=== PATIENT | male | born 1945 | race Caucasian/White ===

== ENCOUNTER 2018-03-04 09:25 | Inpatient (IN) | payer MEDICARE, OTHER ==
--- NOTE | 2018-03-04 11:03 | XRAY Report ---
Reason: swollen, pain Procedure Date: 03/04/2018 Accession Number: [id number] / [id number] Procedure: XR - Knee 3 View LT CPT Code: FULL RESULT: EXAM: LEFT KNEE RADIOGRAPHY, 3 VIEWS EXAM DATE: 03/04/2018 10:42 AM. CLINICAL HISTORY: 72-year-old male with nontraumatic swelling and pain left knee. COMPARISON: None. TECHNIQUE: AP, crosstable lateral and sunrise views. FINDINGS: Bones: Minor hypertrophic changes of the tibial spines and patella. No fractures or bone lesions. Joints: Normal. No effusion. No subluxations. Soft Tissues: Moderate prepatellar and infrapatellar soft tissue swelling. No soft tissue gas or foreign body. IMPRESSION: Moderate anterior knee swelling, without soft tissue gas or foreign body. Minor hypertrophic changes. Knee joint otherwise normal. No evident fracture, lytic or destructive process. RADIA
[2018-03-04 11:59] LABS: BASOPHILS # (AUTO) 0.1 10^3/uL (0.0-0.1); BASOPHILS % (AUTO) 0.4 %; EOSINOPHILS % (AUTO) 0.1 %; HGB - HEMOGLOBIN 14.4 g/dL (14.0-18.0); LYMPHOCYTES # (AUTO) 0.9 10^3/uL (1.5-3.5); LYMPHOCYTES % (AUTO) 5.4 %; MEAN CORPUSCULAR HEMOGLOBIN 30.3 pg (27.0-31.0); MEAN CORPUSCULAR HGB CONC 34.2 g/dL (32.0-36.0); MEAN CORPUSCULAR VOLUME 88.6 fL (80.0-94.0); MEAN PLATELET VOLUME 7.8 fL (7.4-11.4); MONOCYTES # (AUTO) 0.8 10^3/uL (0.0-1.0); MONOCYTES % (AUTO) 5.1 %; NEUTROPHILS # (AUTO) 14.3 10^3/uL (1.5-6.6); PLT - PLATELET COUNT 177 10^3/uL (130-450); RED BLOOD COUNT 4.75 10^6/uL (4.70-6.10); RED CELL DISTRIBUTION WIDTH 14.7 % (12.0-15.0); WHITE BLOOD COUNT 16.1 x10^3/uL (4.8-10.8)
[2018-03-04 12:11] LABS: ALBUMIN 3.9 g/dL (3.2-5.5); BILIRUBIN,TOTAL 1.2 mg/dL (0.2-1.0); CALCIUM 9.1 mg/dL (8.5-10.3); TOTAL PROTEIN 7.9 g/dL (6.7-8.2)
[2018-03-04] MEDS ORDERED: VANCOMYCIN INJ 1 GM in SODIUM CHLORIDE 0.9% 500 ML IV STA (12:49)
[2018-03-04] MEDS ORDERED: cefTRIAXone 1 GM in SODIUM CHLORIDE 0.9% MINIBAG 100 ML IV STA (12:49)
--- NOTE | 2018-03-04 12:53 | ED Physician Documentation ---
PD HPI LOWER EXT INJURY - Stated complaint Stated Complaint: LT KNEE SWOLLEN - Chief complaint Chief Complaint: Ext Problem - History obtained from History obtained from: Patient, Family - History of Present Illness PD HPI LOW EXT INJURY LOCATION: Left, Knee, Lower leg Type of injury: Puncture wound Where injury occurred: Home Timing - onset: How many weeks ago (1.5) Timing - duration: Days (1) Timing - details: Abrupt onset Pain level max: 0 Pain level now: 0 Improved by: Nothing Worsened by: Other (nothing) Associated symptoms: Swelling, Discolored. No: Weakness, Numbness, Tingling Contributing factors: No: Anticoagulated Similar symptoms before: Has not had sx before Recently seen: Not recently seen - Additional information Additional information: 72-year-old male with no past medical history but had arthroscopic of bilateral knees for his ACL many years ago here with complaint of left knee swelling yesterday and waking up at 8:00 in the morning with Redness of his left leg. Patient stated that he banged his lower left leg a week and a half ago on his boat. Right now it has been scabbed. claims that he was complaining of chills a couple of days ago. Patient claims his tetanus shot is up to date. Review of Systems Ten Systems: 10 systems reviewed and negative Constitutional: reports: Chills. denies: Fever GI: denies: Abdominal Pain Skin: reports: Abrasion (s). denies: Rash, Lesions, Bite / sting Musculoskeletal: reports: Extremity swelling. denies: Neck pain, Back pain, Extremity pain, Joint pain Neurologic: denies: Generalized weakness, Focal weakness, Numbness PD PAST MEDICAL HISTORY - Past Medical History Past Medical History: No Cardiovascular: Hypertension Endocrine/Autoimmune: Type 2 diabetes - Past Surgical History Past Surgical History: Yes - Present Medications Home Medications: Ambulatory Orders Medication Instructions Recorded Confirmed Blood Pressure Medication 03/04/18 metFORMIN [Glucophage] 1,000 mg PO BIDWM 03/04/18 03/04/18 - Allergies Allergies/Adverse Reactions: Allergies Allergy/AdvReac Type Severity Reaction Status Date / Time No Known Drug Allergies Allergy Verified 03/04/18 09:40 - Social History Does the pt smoke?: No Smoking Status: Never smoker Does the pt drink ETOH?: No Does the pt have substance abuse?: No - Immunizations Immunizations are current?: Yes PD ED PE NORMAL - Vitals Vital signs reviewed: Yes - General General: Alert and oriented X 3, No acute distress, Well developed/nourished - HEENT HEENT: Moist mucous membranes - Neck Neck: Supple, no meningeal sign - Cardiac Cardiac: RRR, No murmur - Respiratory Respiratory: Clear bilaterally - Abdomen Abdomen: Normal bowel sounds, Soft, Non tender, Non distended - Back Back: No CVA TTP, No spinal TTP - Derm Derm: Normal color, Warm and dry, Other (Anterior aspect of his left leg has erythema with warmth to touch from distal thigh to proximal tibia.). No: No rash - Extremities Extremities: No deformity, Normal ROM s pain. No: No tenderness to palpate, No edema, No calf tenderness / cord - Neuro Neuro: Alert and oriented X 3 - Psych Psych: Normal mood, Normal affect Results - Vitals Vitals: Vital Signs - 24 hr 03/04/18 03/04/18 09:30 12:00 Temperature 36.6 C 37.2 C Heart Rate 115 H 93 Respiratory 18 16 Rate Blood Pressure 132/85 H 104/89 H O2 Saturation 95 95 Oxygen O2 Source Room air - Labs Labs: Laboratory Tests 03/04/18 03/04/18 03/04/18 11:50 11:50 Unknown WBC 16.1 H RBC 4.75 Hgb 14.4 Hct 42.1 MCV 88.6 MCH 30.3 MCHC 34.2 RDW 14.7 Plt Count 177 MPV 7.8 Neut # (Auto) 14.3 H Lymph # (Auto) 0.9 L Millard # (Auto) 0.8 Eos # (Auto) 0.0 Baso # (Auto) 0.1 Absolute Nucleated RBC 0.00 Nucleated RBC % 0.0 ESR 24 H Sodium 134 L Potassium 3.6 Chloride 97 L Carbon Dioxide 27 Anion Gap 10.0 BUN 15 Creatinine 1.0 Estimated GFR (MDRD) 74 L Glucose 142 H Calcium 9.1 Total Bilirubin 1.2 H AST 19 ALT 17 Alkaline Phosphatase 53 C-React Prot High Sens Total Protein 7.9 Albumin 3.9 Globulin 4.0 Albumin/Globulin Ratio 1.0 Lipase 17 L 03/04/18 Unknown WBC RBC Hgb Hct MCV MCH MCHC RDW Plt Count MPV Neut # (Auto) Lymph # (Auto) Millard # (Auto) Eos # (Auto) Baso # (Auto) Absolute Nucleated RBC Nucleated RBC % ESR Sodium Potassium Chloride Carbon Dioxide Anion Gap BUN Creatinine Estimated GFR (MDRD) Glucose Calcium Total Bilirubin AST ALT Alkaline Phosphatase C-React Prot High Sens 352.5 Total Protein Albumin Globulin Albumin/Globulin Ratio Lipase PD MEDICAL DECISION MAKING - ED course Complexity details: reviewed results, re-evaluated patient, considered differential (Contusion, cellulitis, knee effusion, septic arthritis), d/w patient, d/w family, d/w PMD ED course: 1128 patient informed of x-ray results. He agreed to have some labs done as it appears that the left leg is cellulitic. 1240 patient inform of test results. Patient agreed to be admitted for IV antibiotics for cellulitis. 1247 spoke to the hospitalist Dr. Decker and case was discussed. He would like the patient started on vancomycin and Rocephin.He will admit the patient. Departure - Departure Disposition: 66 [facility] DC/Xfer Clinical Impression: Cellulitis of leg without foot, left Condition: Stable
[2018-03-04] MEDS ORDERED: VANCOMYCIN INJ 2.5 GM in SODIUM CHLORIDE 0.9% 500 ML IV STA (13:21)
[2018-03-04 14:07] LABS: HB2 TOTAL 15.5 g/dL; HEMOGLOBIN A1C 0.59 g/dL; HEMOGLOBIN A1C % 5.6 % (4.6-6.2)
[2018-03-04] MEDS: ACETAMINOPHEN 325 MG TABLET PO PRN ×2 (14:32→18:42)
--- NOTE | 2018-03-04 14:37 | HISTORY & PHYSICAL EXAMINATION ---
Chief Complaint - Chief Complaint Chief Complaint: left de la fuente swelling, pain History of Present Illness - Admitted From Admitted From:: ED - History Obtained From Records Reviewed: yes History obtained from: chart review, patient Exam Limitations: none - History of Present Illness HPI Comment/Other: Jordan Briscoe (Jim) is an obese 72-year old male with a past medical history of peripheral neuropathy, controlled DM type 2-on Metformin, obesity, logging accident in 1969 to LLE, and hardware removal in 1971 after infection. The patient admits to bumping his left de la fuente about a week ago [place] and this resulted in a dime sized scab. 2 days ago the patient described a series of full body rigors, increased fatigue, loss of appetite, chills, sweats, increased left knee swelling and pain while ambulating. Today he decided to come to the ED since his left knee was not only swollen, but also warm and red. Once arriving in the ED labs were unremarkable with the exception of a WBC count of 16.1 and an elevated ESR of 24. The patient was afebrile while in the ED, but after arriving to the nursing floor was found to have a temp max of 37.8, blood pressure of 132/85, and was comfortable on room air. On exam his left knee and de la fuente were swollen, were tender, and this erythema had not exceeded the previous markings, but seemed to originate at the dime sized scab on his anterior de la fuente and extended just past his knee into his thigh about 5 inches. He was given a one time dose of Rocephin. He denied chest pain, shortness of breath, nausea, vomiting, headaches, hallucinations, orthopnea, a new rash, loss of consciousness, falls, recent illness, or diarrhea. He will be admitted to inpatient for further work up and treatment of this left leg cellulitis. 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 - Family & Social History Family History: Mother: , Father: Family History Comment/Other: The patient states that both of his parents are and they had no known past medical history. Living arrangement: At home (Lives in the [place] on a boat with his .) Living Situation: With spouse/s.o. Social History Notes: The patient is retired and lives independently in the [place] on a boat with is . His [place] Terrior has just had a litter of puppies. He denies the use of alcohol, tobacco or illicit drugs. He wishes to be a DNR. - Substance History Use: Uses substance without health or social issues: NONE Abuse: Recurrent use of substance despite neg consequences: NONE Dependence: Experiences withdrawal or developed tolerances: NONE - POLST Patient has POLST: No POLST Status: DNR Meds/Allgy - Home Medications Home Medications: Ambulatory Orders Medication Instructions Recorded Confirmed Losartan [Cozaar] 50 mg PO DAILY 03/04/18 03/04/18 metFORMIN [Glucophage] 1,000 mg PO BIDWM 03/04/18 03/04/18 - Allergies Allergies/Adverse Reactions: Allergies Allergy/AdvReac Type Severity Reaction Status Date / Time No Known Drug Allergies Allergy Verified 03/04/18 09:40 Review of Systems - Constitutional Constitutional: reports: Fatigue, Chills, Weakness, Poor appetite, Night sweats - Eyes Eyes: denies: Pain - Ears, Nose & Throat Ears, Nose & Throat: reports: Hearing loss. denies: Ear pain, Tinnitus, Vertigo - Cardiovascular Cariovascular: reports: Edema (left knee). denies: Lightheadedness, Syncope - Respiratory Respiratory: denies: Cough, Sputum production - Gastrointestinal Gastrointestinal: reports: Abdominal distention, Nausea, Reflux/heartburn - Genitourinary Genitourinary: reports: Nocturia. denies: Dysuria, Frequency - Musculoskeletal Musculoskeletal: reports: Limited range of motion, Joint swelling (left knee). denies: Muscle pain, Back pain - Integumentary Integumentary: reports: Dryness - Neurological Neurological: reports: General weakness - Psychiatric Psychiatric: denies: Depression, Anxiety - Endocrine Endocrine: denies: Polyuria, Polydypsia - Hematologic/Lymphatic Hematologic/Lymphatic: denies: Anemia, Bruising - All Other Systems All Other Systems: reports: Reviewed and negative Prior Level of Functionality: Independent, lives in the [place] on a boat with his . Uses no assistive devices. Good vision and hearing. Exam - Vital Signs Reviewed Vital Signs: Yes Vital Signs: Vital Signs x48h Temp Pulse Pulse Resp BP BP Pulse Ox 03/04/18 13:53 37.3 C 91 24 140/84 H 96 03/04/18 13:10 37.4 C 93 20 139/85 H 95 03/04/18 12:00 37.2 C 93 16 104/89 H 95 03/04/18 09:30 36.6 C 115 H 18 132/85 H 95 - Physical Exam General Appearance: positive: Alert, Mild distress Eyes Bilateral: positive: PERRL ENT: positive: Pharynx nml, No signs of dehydration Neck: positive: Thyroid nml, No JVD, Trachea midline Respiratory: positive: Chest non-tender, No respiratory distress, Breath sounds nml Cardiovascular: positive: Regular rate & rhythm, No murmur, No gallop Peripheral Pulses: positive: 2+ Abdomen: positive: Non-tender, Nml bowel sounds, Other (obese, soft) Back: positive: Nml inspection Skin: positive: No rash, Warm, Dry Extremities: positive: Pedal edema (trace bilateral feet, increased swelling, tenderness, warmth, and redness to left de la fuente and knee. Healing scab to left anterior lower leg.), Joint swelling (left knee) Neurologic/Psychiatric: positive: Oriented x3, CN's nml (2-12), Motor nml, Sensation nml, Weakness Reflexes: Bicep (R): 3+, Bicep (L): 3+ Sepsis Event Note (H) - Evaluation Current Stage of Sepsis: Ruled out Conclusion/Plan - Problem List (1) Cellulitis of leg without foot, left Conclusion/Plan: The patient admits to bumping his left de la fuente about a week ago [place] and this resulted in a dime sized scab. He admits to moderate peripheral neuropathy as a possible contributing factor to this injury. 2 days ago the patient described a series of full body rigors, increased fatigue, loss of appetite, chills, sweats, increased left knee swelling and pain while ambulating. Today he decided to come to the ED since his left knee was not only swollen, but also warm and red. Since arriving in the ED the original tracing has not increased and he was initially treated with IV Rocephin. Plan: Aggressive treatment with IV Zosyn, vanco per pharmacy and continuous monitoring of the left leg. (2) Diabetes mellitus type 2 in obese Conclusion/Plan: The patient denies being diabetic when asked, but later admitted to this disease and claims that he has only been on Metformin for a few years. He is obese and has peripheral neuropathy. I added on a hemoglobin A1C to his admission labs which shows very good blood sugar control with it being 5.4%. Plan: Hold metformin as per hospital protocol, Lantus 5 units at HS, SSI with blood sugar checks AC/HS. Regular diet for now since his appetite has been very poor. (3) Obesity with body mass index of 30.0-39.9 Conclusion/Plan: The patient has a current BMI of 37.9, a rounded abdomen, but states that he remains very active since him and his live on the [place] on a boat. He is required to walk long distances, which has been serving him well as he appears on exam to be in good shape with very good muscle tone and no evidence of choric vascular complications. Plan: Treat this acute illness, encourage weight management program as per PCP consult. (4) Peripheral neuropathy Conclusion/Plan: The patient has a loss of sensation on exam extending to his mid calf. He states this is chronic. He has controlled DM, and is obese. This may have been a contributing factor to this injury. He denies chronic naturopathic pain. Plan: Continue to treat acute illness. - Lab Results Lab results reviewed: Yes Fish Bones: 03/04/18 11:50 03/04/18 11:50 - Diagnostic Imaging Results Diagnostic Imaging Results: positive: Final report reviewed Diagnostic Imaging Results Comments: EXAM: LEFT KNEE RADIOGRAPHY, 3 VIEWS EXAM DATE: 03/04/2018 10:42 AM. IMPRESSION: Moderate anterior knee swelling, without soft tissue gas or foreign body. Minor hypertrophic changes. Knee joint otherwise normal. No evident fracture, lytic or destructive process. ECHOCARDIOGRAM has been ordered. - EKG Results EKG Interpreted Independently: Yes EKG Comparison: No prior EKG (NSR) Core Measures - Anticipated LOS I expect patient to be DC'd or transferred within 96 hours.: Yes - DVT/VTE - Prophylaxis VTE/DVT Device ordered at admit?: Yes VTE/DVT Prophylaxis med ordered at admit?: Yes - Stroke - Rehab Assessment Rehab services assessment to be ordered?: No Not Ordered - Medical Reason: Contraindicated - AMI - Statin at Admit Aspirin Prescribed on Admit: Yes
[2018-03-04] MEDS ORDERED: VANCOMYCIN PER PHARMACY 0.001 GM in SODIUM CHLORIDE 0.9% 250 ML IV PRN (15:00)
[2018-03-04] MEDS: PIPERACILLIN/TAZOBACTAM 3.375 GM in SODIUM CHLORIDE 0.9% MINIBAG 100 ML IV SCH ×2 (16:30→21:27)
[2018-03-04] MEDS: SODIUM CHLORIDE FLUSH 0.9% 10 ML SYRINGE IVP SCH (16:31)
[2018-03-04] MEDS: INSULIN ASPART 300 UNIT/3 ML PEN SUBQ SCH ×2 (17:03→21:13)
[2018-03-04] MEDS ORDERED: SODIUM CHLORIDE 0.9% 500 ML IV ONE (17:50)
[2018-03-04] MEDS: SODIUM CHLORIDE FLUSH 0.9% 10 ML SYRINGE IVP PRN (18:42)
[2018-03-04] MEDS ORDERED: INSULIN GLARGINE 300 UNIT/3 ML PEN SUBQ SCH (21:00)
[2018-03-05] MEDS: SODIUM CHLORIDE FLUSH 0.9% 10 ML SYRINGE IVP SCH ×3 (00:32→16:19)
[2018-03-05] MEDS: ACETAMINOPHEN 325 MG TABLET PO PRN ×3 (00:43→16:18)
[2018-03-05] MEDS: VANCOMYCIN INJ 1 GM, VANCOMYCIN INJ 500 MG in SODIUM CHLORIDE 0.9% 500 ML IV SCH ×2 (01:57→14:06)
[2018-03-05] MEDS: PIPERACILLIN/TAZOBACTAM 3.375 GM in SODIUM CHLORIDE 0.9% MINIBAG 100 ML IV SCH ×4 (04:02→21:22)
[2018-03-05] MEDS: SODIUM CHLORIDE FLUSH 0.9% 10 ML SYRINGE IVP PRN ×3 (04:09→21:23)
[2018-03-05 05:49] LABS: BASOPHILS # (AUTO) 0.1 10^3/uL (0.0-0.1); BASOPHILS % (AUTO) 0.5 %; EOSINOPHILS # (AUTO) 0.1 10^3/uL (0.0-0.7); EOSINOPHILS % (AUTO) 0.9 %; LYMPHOCYTES % (AUTO) 7.8 %; MEAN CORPUSCULAR HEMOGLOBIN 30.1 pg (27.0-31.0); MEAN CORPUSCULAR HGB CONC 34.1 g/dL (32.0-36.0); MEAN CORPUSCULAR VOLUME 88.1 fL (80.0-94.0); MONOCYTES # (AUTO) 0.6 10^3/uL (0.0-1.0); MONOCYTES % (AUTO) 5.2 %; NEUTROPHILS # (AUTO) 10.4 10^3/uL (1.5-6.6); NEUTROPHILS % (AUTO) 85.6 %; PLT - PLATELET COUNT 152 10^3/uL (130-450); RED BLOOD COUNT 4.31 10^6/uL (4.70-6.10); RED CELL DISTRIBUTION WIDTH 14.8 % (12.0-15.0); WHITE BLOOD COUNT 12.2 x10^3/uL (4.8-10.8)
[2018-03-05 06:19] LABS: ALBUMIN 3.1 g/dL (3.2-5.5); ALBUMIN/GLOBULIN RATIO 0.8 (1.0-2.2); BILIRUBIN,TOTAL 1.4 mg/dL (0.2-1.0); CALCIUM 8.4 mg/dL (8.5-10.3); CRP - C-REACTIVE PROTEIN 33.7 mg/dL (0-1.0); MAGNESIUM 1.7 mg/dL (1.7-2.8); PHOSPHORUS 2.6 mg/dL (2.5-4.6); TOTAL PROTEIN 6.9 g/dL (6.7-8.2)
[2018-03-05] MEDS: INSULIN ASPART 300 UNIT/3 ML PEN SUBQ SCH ×2 (07:37→11:41)
[2018-03-05] MEDS ORDERED: POTASSIUM CHLORIDE 20 MEQ TABLET PO ONE (08:22)
[2018-03-05] MEDS: POLYETHYLENE GLYCOL 3350 17 GM PACKET PO SCH (08:22)
--- NOTE | 2018-03-05 08:22 | PROVIDER PROGRESS NOTE ---
Subjective - Prog Note Date Prog Note Date: 03/05/18 Prog Note Time: 08:22 - Subjective Pt reports feeling: Improved Subjective: Slim continues to have discomfort on exam of his LLE, and is fearful of getting up today as the pain becomes too intense. I have made a new outline of the redness which is overall improved and with much less redness. He denies insomnia, shortness of breath, nausea, vomiting, a new rash, or a new cough. He admits to a continued poor appetite and notes meals to be a struggle. Current Medications - Current Medications Current Medications: Active Medications Acetaminophen (Tylenol) 650 mg PO Q4HR PRN PRN Reason: Pain or Fever > 38C (100.4F) Last Admin: 03/05/18 08:22 Dose: 650 mg Piperacillin Sod/Tazobactam (Sod 3.375 gm/ Sodium Chloride) 100 mls @ 200 mls/hr IV Q6H [facility] Last Infusion: 03/05/18 04:37 Dose: Infused Vancomycin HCl 0.001 gm/ (Sodium Chloride) 250 mls @ 167 mls/hr IV .PERPHARMACY PRN PRN Reason: PER PHARMACY: CELLULITIS Vancomycin HCl 1 gm/Vancomycin HCl 500 mg/ Sodium Chloride 500 mls @ 250 mls/hr IV Q12H [facility] Last Infusion: 03/05/18 04:01 Dose: Infused Lactated Ringer's (Lr) 1,000 mls @ 125 mls/hr IV .Q8H [facility]ET Insulin Aspart (Novolog) 1 - 5 unit SUBQ 0800,1200,1700,2100 JET; Protocol Last Admin: 03/05/18 07:37 Dose: Not Given Insulin Glargine (Lantus Solostar) 5 unit SUBQ QPM JET Last Admin: 03/04/18 21:27 Dose: 5 unit Polyethylene Glycol (Miralax) 17 gm PO DAILY JET Last Admin: 03/05/18 08:22 Dose: 17 gm Potassium Chloride (K-Dur) 40 meq PO ONCE ONE Stop: 03/05/18 08:23 Sodium Chloride (Normal Saline Flush 0.9%) 10 ml IVP PRN PRN PRN Reason: NEEDED PER PROVIDER ORDERS Last Admin: 03/05/18 04:38 Dose: 10 ml Sodium Chloride (Normal Saline Flush 0.9%) 10 ml IVP 0100,0900,1700 [facility] Last Admin: 03/05/18 00:32 Dose: 10 ml Losartan [Cozaar] 50 mg PO DAILY 03/04/18 metFORMIN [Glucophage] 1,000 mg PO BIDWM 03/04/18 Objective - Vital Signs/Intake & Output Reviewed Vital Signs: Yes Vital Signs: Vital Signs x48h Temp Pulse Resp BP Pulse Ox 03/05/18 07:37 37.6 C H 86 20 138/77 H 94 03/05/18 05:23 37.3 C 78 20 130/66 94 03/05/18 01:40 37.5 C Intake & Output: Intake & Output 03/02/18 03/03/18 03/04/18 03/05/18 23:59 23:59 23:59 23:59 Intake Total 1600 1120 Output Total 400 350 Balance 1200 770 - Objective General Appearance: positive: No acute distress, Alert Eyes Bilateral: positive: PERRL ENT: positive: Pharynx nml, No signs of dehydration Neck: positive: Thyroid nml, No JVD Respiratory: positive: Chest non-tender, No respiratory distress, Breath sounds nml Cardiovascular: positive: Regular rate & rhythm, No gallop Peripheral Pulses: 1+ Radial (R), 1+ Radial (L), 1+ Dorsalis pedis (R), 1+ Dorsalis pedis (L) Abdomen: positive: Non-tender, Nml bowel sounds Back: positive: Nml inspection Skin: positive: No rash, Warm, Dry Extremities: positive: Full ROM, Pedal edema, Joint swelling (left knee with redness) Neurologic/Psychiatric: positive: Oriented x3, CN's nml (2-12), Motor nml, Sensation nml, Mood/affect nml Reflexes: Bicep (R): 3+, Bicep (L): 3+, Ankle (R): 3+, Ankle (L): 3+ - Lab Results Fish Bones: 03/06/18 05:20 03/06/18 05:20 Other Labs: Lab Results x24hrs 03/05/18 03/05/18 03/05/18 Range/Units 07:34 05:05 05:05 WBC (4.8-10.8) x10^3/uL RBC (4.70-6.10) 10^6/uL Hgb (14.0-18.0) g/dL Hct (42.0-52.0) % MCV (80.0-94.0) fL MCH (27.0-31.0) pg MCHC (32.0-36.0) g/dL RDW (12.0-15.0) % Plt Count (130-450) 10^3/uL MPV (7.4-11.4) fL Neut # (Auto) (1.5-6.6) 10^3/uL Lymph # (Auto) (1.5-3.5) 10^3/uL [place] # (Auto) (0.0-1.0) 10^3/uL Eos # (Auto) (0.0-0.7) 10^3/uL Baso # (Auto) (0.0-0.1) 10^3/uL Absolute Nucleated RBC x10^3/uL Nucleated RBC % /100WBC ESR 75 H (0-20) mm/Hr Sodium 135 (135-145) mmol/L Potassium 3.1 L (3.5-5.0) mmol/L Chloride 101 (101-111) mmol/L Carbon Dioxide 24 (21-32) mmol/L Anion Gap 10.0 (6-13) BUN 14 (6-20) mg/dL Creatinine 1.0 (0.6-1.2) mg/dL Estimated GFR (MDRD) 74 L (>89) Glucose 115 H (70-100) mg/dL POC Whole Bld Glucose 112 H (70 - 100) mg/dL Glycated Hemoglobin (4.6-6.2) % Estim Average Glucose (70-100) Calcium 8.4 L (8.5-10.3) mg/dL Phosphorus 2.6 (2.5-4.6) mg/dL Magnesium 1.7 (1.7-2.8) mg/dL Total Bilirubin 1.4 H (0.2-1.0) mg/dL AST 39 (10-42) IU/L ALT 19 (10-60) IU/L Alkaline Phosphatase 50 (42-121) IU/L C-Reactive Protein 33.7 H (0-1.0) mg/dL C-React Prot High Sens mg/L Total Protein 6.9 (6.7-8.2) g/dL Albumin 3.1 L (3.2-5.5) g/dL Globulin 3.8 (2.1-4.2) g/dL Albumin/Globulin Ratio 0.8 L (1.0-2.2) Lipase (22-51) U/L 03/05/18 03/04/18 03/04/18 Range/Units 05:05 Unknown Unknown WBC 12.2 H (4.8-10.8) x10^3/uL RBC 4.31 L (4.70-6.10) 10^6/uL Hgb 13.0 L (14.0-18.0) g/dL Hct 38.0 L (42.0-52.0) % MCV 88.1 (80.0-94.0) fL MCH 30.1 (27.0-31.0) pg MCHC 34.1 (32.0-36.0) g/dL RDW 14.8 (12.0-15.0) % Plt Count 152 (130-450) 10^3/uL MPV 8.0 (7.4-11.4) fL Neut # (Auto) 10.4 H (1.5-6.6) 10^3/uL Lymph # (Auto) 1.0 L (1.5-3.5) 10^3/uL [place] # (Auto) 0.6 (0.0-1.0) 10^3/uL Eos # (Auto) 0.1 (0.0-0.7) 10^3/uL Baso # (Auto) 0.1 (0.0-0.1) 10^3/uL Absolute Nucleated RBC 0.00 x10^3/uL Nucleated RBC % 0.0 /100WBC ESR 24 H (0-20) mm/Hr Sodium (135-145) mmol/L Potassium (3.5-5.0) mmol/L Chloride (101-111) mmol/L Carbon Dioxide (21-32) mmol/L Anion Gap (6-13) BUN (6-20) mg/dL Creatinine (0.6-1.2) mg/dL Estimated GFR (MDRD) (>89) Glucose (70-100) mg/dL POC Whole Bld Glucose (70 - 100) mg/dL Glycated Hemoglobin (4.6-6.2) % Estim Average Glucose (70-100) Calcium (8.5-10.3) mg/dL Phosphorus (2.5-4.6) mg/dL Magnesium (1.7-2.8) mg/dL Total Bilirubin (0.2-1.0) mg/dL AST (10-42) IU/L ALT (10-60) IU/L Alkaline Phosphatase (42-121) IU/L C-Reactive Protein (0-1.0) mg/dL C-React Prot High Sens 352.5 mg/L Total Protein (6.7-8.2) g/dL Albumin (3.2-5.5) g/dL Globulin (2.1-4.2) g/dL Albumin/Globulin Ratio (1.0-2.2) Lipase (22-51) U/L 03/04/18 03/04/18 03/04/18 Range/Units 20:23 16:35 13:33 WBC (4.8-10.8) x10^3/uL RBC (4.70-6.10) 10^6/uL Hgb (14.0-18.0) g/dL Hct (42.0-52.0) % MCV (80.0-94.0) fL MCH (27.0-31.0) pg MCHC (32.0-36.0) g/dL RDW (12.0-15.0) % Plt Count (130-450) 10^3/uL MPV (7.4-11.4) fL Neut # (Auto) (1.5-6.6) 10^3/uL Lymph # (Auto) (1.5-3.5) 10^3/uL [place] # (Auto) (0.0-1.0) 10^3/uL Eos # (Auto) (0.0-0.7) 10^3/uL Baso # (Auto) (0.0-0.1) 10^3/uL Absolute Nucleated RBC x10^3/uL Nucleated RBC % /100WBC ESR (0-20) mm/Hr Sodium (135-145) mmol/L Potassium (3.5-5.0) mmol/L Chloride (101-111) mmol/L Carbon Dioxide (21-32) mmol/L Anion Gap (6-13) BUN (6-20) mg/dL Creatinine (0.6-1.2) mg/dL Estimated GFR (MDRD) (>89) Glucose (70-100) mg/dL POC Whole Bld Glucose 119 H 122 H (70 - 100) mg/dL Glycated Hemoglobin 5.6 (4.6-6.2) % Estim Average Glucose 114 H (70-100) Calcium (8.5-10.3) mg/dL Phosphorus (2.5-4.6) mg/dL Magnesium (1.7-2.8) mg/dL Total Bilirubin (0.2-1.0) mg/dL AST (10-42) IU/L ALT (10-60) IU/L Alkaline Phosphatase (42-121) IU/L C-Reactive Protein (0-1.0) mg/dL C-React Prot High Sens mg/L Total Protein (6.7-8.2) g/dL Albumin (3.2-5.5) g/dL Globulin (2.1-4.2) g/dL Albumin/Globulin Ratio (1.0-2.2) Lipase (22-51) U/L 18 03/04/18 Range/Units 11:50 11:50 WBC 16.1 H (4.8-10.8) x10^3/uL RBC 4.75 (4.70-6.10) 10^6/uL Hgb 14.4 (14.0-18.0) g/dL Hct 42.1 (42.0-52.0) % MCV 88.6 (80.0-94.0) fL MCH 30.3 (27.0-31.0) pg MCHC 34.2 (32.0-36.0) g/dL RDW 14.7 (12.0-15.0) % Plt Count 177 (130-450) 10^3/uL MPV 7.8 (7.4-11.4) fL Neut # (Auto) 14.3 H (1.5-6.6) 10^3/uL Lymph # (Auto) 0.9 L (1.5-3.5) 10^3/uL [place] # (Auto) 0.8 (0.0-1.0) 10^3/uL Eos # (Auto) 0.0 (0.0-0.7) 10^3/uL Baso # (Auto) 0.1 (0.0-0.1) 10^3/uL Absolute Nucleated RBC 0.00 x10^3/uL Nucleated RBC % 0.0 /100WBC ESR (0-20) mm/Hr Sodium 134 L (135-145) mmol/L Potassium 3.6 (3.5-5.0) mmol/L Chloride 97 L (101-111) mmol/L Carbon Dioxide 27 (21-32) mmol/L Anion Gap 10.0 (6-13) BUN 15 (6-20) mg/dL Creatinine 1.0 (0.6-1.2) mg/dL Estimated GFR (MDRD) 74 L (>89) Glucose 142 H (70-100) mg/dL POC Whole Bld Glucose (70 - 100) mg/dL Glycated Hemoglobin (4.6-6.2) % Estim Average Glucose (70-100) Calcium 9.1 (8.5-10.3) mg/dL Phosphorus (2.5-4.6) mg/dL Magnesium (1.7-2.8) mg/dL Total Bilirubin 1.2 H (0.2-1.0) mg/dL AST 19 (10-42) IU/L ALT 17 (10-60) IU/L Alkaline Phosphatase 53 (42-121) IU/L C-Reactive Protein (0-1.0) mg/dL C-React Prot High Sens mg/L Total Protein 7.9 (6.7-8.2) g/dL Albumin 3.9 (3.2-5.5) g/dL Globulin 4.0 (2.1-4.2) g/dL Albumin/Globulin Ratio 1.0 (1.0-2.2) Lipase 17 L (22-51) U/L ABX Reporting Has patient been on IV antibiotics over the past 48 hours?: Yes Sepsis Event Note (H) - Evaluation Current Stage of Sepsis: Ruled out Assessment/Plan - Problem List (1) Cellulitis of leg without foot, left Impression: The patient admits to bumping his left de la fuente about a week ago [place] and this resulted in a dime sized scab. He admits to moderate peripheral neuropathy as a possible contributing factor to this injury. Two days prior to admission, the patient described a series of full body rigors, increased fatigue, loss of appetite, chills, sweats, increased left knee swelling and pain while ambulating. Today on exam, the patient's redness has diminished, although he continues to have a little more redness near his knee. The lines of his cellulitis has sof tened, and he has overall less pain. He is still timid about standing on his LLE due to worsening pain with standing, but he took a pain pill and sat in the chair today. Drainage was appreciated this morning and a wound culture is now pending. Plan: Continue treatment with IV Zosyn, vanco per pharmacy and continuous monitoring of the left leg. (2) Diabetes mellitus type 2 in obese Impression: The patient denies being diabetic when asked, but later admitted to this disease and claims that he has only been on Metformin for a few years. He is obese and has peripheral neuropathy. I added on a hemoglobin A1C to his admission labs which shows very good blood sugar control with it being 5.4%. His AC/HS sugars have been ~115, so I have canceled SSI and BS checks. Plan: Hold metformin as per hospital protocol, discontinue Lantus with his overall low sugars, and continued poor appetite. Continue regular diet for now since his appetite has been very poor. (3) Obesity with body mass index of 30.0-39.9 Impression: The patient has a current BMI of 37.9, a rounded abdomen, but states that he remains very active since him and his live on the [place] on a boat. He is required to walk long distances, which has been serving him well as he appears on exam to be in good shape with very good muscle tone and no evidence of choric vascular complications. Plan: Treat this acute illness, encourage weight management program as per PCP consult. (4) Peripheral neuropathy Impression: The patient has good control of his chronic DM, and is obese. These may have been contributing factors to this injury. He denies chronic naturopathic pain. The patient has a loss of sensation to his BLE toes which improved at his ankle region. Plan: Recommend close follow up with regular foot exams by PCP upon discharge. (5) Anorexia symptom Impression: The patient has had a very poor appetite that began prior to admission and cont inues today. He states that he ate a half bowl of grapes for lunch and consumed a protein shake for breakfast. Prior to this illness, the patient had a normal diet. Plan: Continue a regular diet with high protein supplements. Monitor for improved oral intake. (6) Pain in left leg Impression: The patient admits to a fear of walking due to when the blood rushes to his feet, his cellulitis hurts worse. Today I insisted that he take a pain pill, and sit in the chair, which he did. Plan: Encourage ambulation/activity. Treat pain with medication.
[2018-03-05] MEDS ORDERED: LACTATED RINGERS 1,000 ML IV SCH (09:00)
[2018-03-05] MEDS ORDERED: NS W/20 MEQ KCL 1,000 ML IV SCH (09:00)
[2018-03-05] MEDS: HYDROcod/ACETAM 5/325 MG TABLET PO PRN ×3 (10:04→18:55)
[2018-03-05] MEDS ORDERED: VANCOMYCIN 1 GM VIAL ONE (13:37)
[2018-03-05] MEDS: METOPROLOL SUCCINATE 25 MG TABLET PO SCH (16:18)
[2018-03-06] MEDS: VANCOMYCIN INJ 1 GM, VANCOMYCIN INJ 500 MG in SODIUM CHLORIDE 0.9% 500 ML IV SCH ×2 (02:37→14:20)
[2018-03-06] MEDS: SODIUM CHLORIDE FLUSH 0.9% 10 ML SYRINGE IVP SCH ×4 (02:37→18:40)
[2018-03-06] MEDS: HYDROcod/ACETAM 5/325 MG TABLET PO PRN ×4 (04:28→18:04)
[2018-03-06] MEDS: PIPERACILLIN/TAZOBACTAM 3.375 GM in SODIUM CHLORIDE 0.9% MINIBAG 100 ML IV SCH ×4 (04:53→22:30)
[2018-03-06 05:45] LABS: BASOPHILS # (AUTO) 0.1 10^3/uL (0.0-0.1); BASOPHILS % (AUTO) 0.7 %; EOSINOPHILS # (AUTO) 0.2 10^3/uL (0.0-0.7); HGB - HEMOGLOBIN 12.7 g/dL (14.0-18.0); LYMPHOCYTES # (AUTO) 0.9 10^3/uL (1.5-3.5); LYMPHOCYTES % (AUTO) 10.5 %; MEAN CORPUSCULAR HEMOGLOBIN 30.1 pg (27.0-31.0); MEAN CORPUSCULAR HGB CONC 33.3 g/dL (32.0-36.0); MEAN CORPUSCULAR VOLUME 90.5 fL (80.0-94.0); MONOCYTES # (AUTO) 0.8 10^3/uL (0.0-1.0); MONOCYTES % (AUTO) 8.9 %; NEUTROPHILS # (AUTO) 6.9 10^3/uL (1.5-6.6); NEUTROPHILS % (AUTO) 77.9 %; PLT - PLATELET COUNT 189 10^3/uL (130-450); RED BLOOD COUNT 4.22 10^6/uL (4.70-6.10); RED CELL DISTRIBUTION WIDTH 14.6 % (12.0-15.0); WHITE BLOOD COUNT 8.9 x10^3/uL (4.8-10.8)
[2018-03-06 06:14] LABS: ALBUMIN/GLOBULIN RATIO 0.8 (1.0-2.2); BILIRUBIN,TOTAL 1.1 mg/dL (0.2-1.0); CALCIUM 8.2 mg/dL (8.5-10.3); CREATININE 0.9 mg/dL (0.6-1.2); CRP - C-REACTIVE PROTEIN 25.2 mg/dL (0-1.0)
[2018-03-06] MEDS: DOCUSATE SODIUM 250 MG CAPSULE PO SCH (09:08)
[2018-03-06] MEDS: SENNA 8.6 MG TABLET PO SCH (09:08)
[2018-03-06] MEDS: POLYETHYLENE GLYCOL 3350 17 GM PACKET PO SCH (09:08)
[2018-03-06] MEDS: METOPROLOL SUCCINATE 25 MG TABLET PO SCH ×2 (09:08→19:52)
--- NOTE | 2018-03-06 12:20 | PROVIDER PROGRESS NOTE ---
Subjective - Prog Note Date Prog Note Date: 03/06/18 Prog Note Time: 12:05 - Subjective Pt reports feeling: Improved Subjective: Slim continues to suffer from a poor appetite and has increased pain with ambulation. Current Medications - Current Medications Current Medications: Active Medications: Acetaminophen (Tylenol) 650 mg PO Q4HR Reason: Pain or Fever > 38C (100.4F) Last Admin: 03/05/18 16:18 Dose: 650 mg Hydrocodone Bitart/Acetaminophen ([place] 5/325) 1 tab PO Q4HR PRN Reason: PAIN Last Admin: 03/06/18 14:20 Dose: 1 tab Docusate Sodium (Colace 250mg Capsule) 250 - 500 mg PO DAILY [facility] Last Admin: 03/06/18 09:08 Dose: 250 mg Piperacillin Sod/Tazobactam (Sod 3.375 gm/ Sodium Chloride) 100 mls @ 200 mls/hr IV Q6H [facility] Last Infusion: 03/06/18 11:57 Dose: Infused Vancomycin HCl 1 gm/Vancomycin HCl 500 mg/ Sodium Chloride 500 mls @ 250 mls/hr IV Q12H [facility] Last Admin: 03/06/18 14:20 Dose: 250 mls/hr Losartan Potassium (Cozaar) 25 mg PO DAILY [facility] Metoprolol Succinate (Toprol Xl) 12.5 mg PO BIDWM [facility] Last Admin: 03/06/18 09:08 Dose: 12.5 mg Polyethylene Glycol (Miralax) 17 gm PO DAILY [facility] Last Admin: 03/06/18 09:08 Dose: 17 gm Senna (Senokot) 8.6 - 17.2 mg PO DAILY [facility] Last Admin: 03/06/18 09:08 Dose: Not Given Sodium Chloride (Normal Saline Flush 0.9%) 10 ml IVP Last Admin: 03/05/18 21:23 Dose: 10 ml Sodium Chloride (Normal Saline Flush 0.9%) 10 ml IVP 0100,0900,1700 [facility] Last Admin: 03/06/18 09:09 Dose: 10 ml Reported HOME meds on admission: Losartan [Cozaar] 50 mg PO DAILY 03/04/18 MetFORMIN [Glucophage] 1,000 mg PO BIDWM 03/04/18 Objective - Vital Signs/Intake & Output Reviewed Vital Signs: Yes Vital Signs: Vital Signs x48h Temp Pulse Resp BP BP Pulse Ox 03/06/18 07:37 37 C 79 18 121/68 96 03/06/18 04:43 37.5 C 03/06/18 04:09 37.6 C H 84 16 125/75 92 Intake & Output: Intake & Output 03/03/18 03/04/18 03/05/18 03/06/18 23:59 23:59 23:59 23:59 Intake Total 1600 3400.000 900 Output Total 400 2050 900 Balance 1200 1350.000 0 - Objective General Appearance: positive: No acute distress, Alert Eyes Bilateral: positive: Normal inspection, PERRL ENT: positive: ENT inspection nml, Pharynx nml, No signs of dehydration Neck: positive: Nml inspection, Thyroid nml, No JVD Respiratory: positive: Chest non-tender, No respiratory distress, Breath sounds nml Cardiovascular: positive: Regular rate & rhythm, No gallop, Systolic murmur Peripheral Pulses: 1+ Radial (R), 1+ Radial (L) Abdomen: positive: Non-tender, Nml bowel sounds, Other (rounded, soft) Back: positive: Nml inspection Skin: positive: No rash, Warm, Dry Extremities: positive: Full ROM, Joint swelling (left knee, with redness.), Other (pain with ambulation) Neurologic/Psychiatric: positive: Oriented x3, CN's nml (2-12), Motor nml, S ensation nml, Mood/affect nml Reflexes: Bicep (R): 3+, Bicep (L): 3+ - Lab Results Fish Bones: 03/06/18 05:20 03/06/18 05:20 Other Labs: Lab Results x24hrs 03/06/18 03/06/18 03/06/18 Range/Units 11:22 07:31 05:20 WBC (4.8-10.8) x10^3/uL RBC (4.70-6.10) 10^6/uL Hgb (14.0-18.0) g/dL Hct (42.0-52.0) % MCV (80.0-94.0) fL MCH (27.0-31.0) pg MCHC (32.0-36.0) g/dL RDW (12.0-15.0) % Plt Count (130-450) 10^3/uL MPV (7.4-11.4) fL Neut # (Auto) (1.5-6.6) 10^3/uL Lymph # (Auto) (1.5-3.5) 10^3/uL [place] # (Auto) (0.0-1.0) 10^3/uL Eos # (Auto) (0.0-0.7) 10^3/uL Baso # (Auto) (0.0-0.1) 10^3/uL Absolute Nucleated RBC x10^3/uL Nucleated RBC % /100WBC ESR 69 H (0-20) mm/Hr Sodium (135-145) mmol/L Potassium (3.5-5.0) mmol/L Chloride (101-111) mmol/L Carbon Dioxide (21-32) mmol/L Anion Gap (6-13) BUN (6-20) mg/dL Creatinine (0.6-1.2) mg/dL Estimated GFR (MDRD) (>89) Glucose (70-100) mg/dL POC Whole Bld Glucose 128 H 122 H (70 - 100) mg/dL Calcium (8.5-10.3) mg/dL Total Bilirubin (0.2-1.0) mg/dL AST (10-42) IU/L ALT (10-60) IU/L Alkaline Phosphatase (42-121) IU/L C-Reactive Protein (0-1.0) mg/dL Total Protein (6.7-8.2) g/dL Albumin (3.2-5.5) g/dL Globulin (2.1-4.2) g/dL Albumin/Globulin Ratio (1.0-2.2) 03/06/18 03/06/18 Range/Units 05:20 05:20 WBC 8.9 (4.8-10.8) x10^3/uL RBC 4.22 L (4.70-6.10) 10^6/uL Hgb 12.7 L (14.0-18.0) g/dL Hct 38.2 L (42.0-52.0) % MCV 90.5 (80.0-94.0) fL MCH 30.1 (27.0-31.0) pg MCHC 33.3 (32.0-36.0) g/dL RDW 14.6 (12.0-15.0) % Plt Count 189 (130-450) 10^3/uL MPV 8.0 (7.4-11.4) fL Neut # (Auto) 6.9 H (1.5-6.6) 10^3/uL Lymph # (Auto) 0.9 L (1.5-3.5) 10^3/uL [place] # (Auto) 0.8 (0.0-1.0) 10^3/uL Eos # (Auto) 0.2 (0.0-0.7) 10^3/uL Baso # (Auto) 0.1 (0.0-0.1) 10^3/uL Absolute Nucleated RBC 0.00 x10^3/uL Nucleated RBC % 0.0 /100WBC ESR (0-20) mm/Hr Sodium 135 (135-145) mmol/L Potassium 3.5 (3.5-5.0) mmol/L Chloride 102 (101-111) mmol/L Carbon Dioxide 23 (21-32) mmol/L Anion Gap 10.0 (6-13) BUN 12 (6-20) mg/dL Creatinine 0.9 (0.6-1.2) mg/dL Estimated GFR (MDRD) 83 L (>89) Glucose 127 H (70-100) mg/dL POC Whole Bld Glucose (70 - 100) mg/dL Calcium 8.2 L (8.5-10.3) mg/dL Total Bilirubin 1.1 H (0.2-1.0) mg/dL AST 36 (10-42) IU/L ALT 21 (10-60) IU/L Alkaline Phosphatase 55 (42-121) IU/L C-Reactive Protein 25.2 H (0-1.0) mg/dL Total Protein 7.0 (6.7-8.2) g/dL Albumin 3.0 L (3.2-5.5) g/dL Globulin 4.0 (2.1-4.2) g/dL Albumin/Globulin Ratio 0.8 L (1.0-2.2) ABX Reporting Has patient been on IV antibiotics over the past 48 hours?: Yes Sepsis Event Note (H) - Evaluation Current Stage of Sepsis: Ruled out - Sepsis Criteria Sepsis Criteria: Metabolic: lactate > 2 mmol/L (related to chronic Metformin use.) Assessment/Plan - Problem List (1) Cellulitis of leg without foot, left Impression: The patient admits to bumping his left de la fuente about a week ago [place] and this [place] in a dime sized scab. He admits to moderate peripheral neuropathy as a possible contributing factor to this injury. Two days prior to admission, the patient described a series of full body rigors, increased fatigue, loss of appetite, chills, sweats, increased left knee swelling and pain while ambulating. The patient's redness has diminished, although he continues to have a little more redness near his knee. The lines of his cellulitis has softened, and he has overall less pain. He is still timid about standing on his LLE due to worsening pain with standing, but he took a pain pill and sat in the chair again today. Drainage was appreciated on the morning after admission and a wound culture is now pending. Plan: Continue treatment with IV Zosyn, vanco per pharmacy and continuous monitoring of the left leg. (2) Pain in left leg Impression: The patient admits to a fear of walking due to when the blood rushes to his feet, his cellulitis hurts worse. He has improved tolerance to more activity today. Plan: Encourage ambulation/activity. Treat pain with medication. (3) Anorexia symptom Impression: The patient has had a very poor appetite that began prior to admission and continues today. Prior to this illness, the patient had a normal diet. He needs to be able to consume food so that he can take his oral antibiotics at home, so he is agreeable to staying another night. Plan: Continue a regular diet with high protein supplements. Monitor for improved oral intake. (4) Peripheral neuropathy Impression: The patient has good control of his chronic DM, and is obese. These may have been contributing factors to this injury. He denies chronic naturopathic pain. The patient has a loss of sensation to his BLE toes which improved at his ankle region. Plan: Recommend close follow up with regular foot exams by PCP upon discharge. (5) Diabetes mellitus type 2 in obese Impression: The patient denies being diabetic when asked, but later admitted to this disease and claims that he has only been on Metformin for a few years. He is obese and has peripheral neuropathy. A hemoglobin A1C shows very good blood sugar control with it being 5.4%. His AC/HS sugars have been ~115, so I have canceled SSI and BS checks. Plan: Hold metformin as per hospital protocol, discontinue Lantus with his overall low sugars, and continued poor appetite. Continue regular diet for now since his appetite has been very poor. (6) Obesity with body mass index of 30.0-39.9 Impression: The patient has a current BMI of 37.9, a rounded abdomen, but states that he remains very active since him and his live on the [place] on a boat. He is required to walk long distances, which has been serving him well as he appears on exam to be in good shape with very good muscle tone and no evidence of choric vascular complications. Plan: Treat this acute illness, encourage weight management program as per PCP consult.
[2018-03-06 14:09] LABS: VANCOMYCIN,TROUGH 11.1 ug/mL (10.0-20.0)
[2018-03-06] MEDS: SODIUM CHLORIDE FLUSH 0.9% 10 ML SYRINGE IVP PRN (22:29)
[2018-03-07] MEDS: HYDROcod/ACETAM 5/325 MG TABLET PO PRN ×5 (01:01→17:18)
[2018-03-07] MEDS: VANCOMYCIN INJ 1 GM, VANCOMYCIN INJ 500 MG in SODIUM CHLORIDE 0.9% 500 ML IV SCH ×2 (02:14→13:38)
[2018-03-07] MEDS: PIPERACILLIN/TAZOBACTAM 3.375 GM in SODIUM CHLORIDE 0.9% MINIBAG 100 ML IV SCH ×4 (04:35→21:36)
[2018-03-07] MEDS: ACETAMINOPHEN 325 MG TABLET PO PRN ×2 (04:39→08:36)
[2018-03-07 05:49] LABS: BASOPHILS % (AUTO) 0.5 %; EOSINOPHILS # (AUTO) 0.2 10^3/uL (0.0-0.7); EOSINOPHILS % (AUTO) 3.1 %; HGB - HEMOGLOBIN 12.9 g/dL (14.0-18.0); LYMPHOCYTES # (AUTO) 1.1 10^3/uL (1.5-3.5); MEAN CORPUSCULAR HGB CONC 33.2 g/dL (32.0-36.0); MEAN CORPUSCULAR VOLUME 90.2 fL (80.0-94.0); MEAN PLATELET VOLUME 7.6 fL (7.4-11.4); MONOCYTES # (AUTO) 0.8 10^3/uL (0.0-1.0); MONOCYTES % (AUTO) 9.9 %; NEUTROPHILS # (AUTO) 5.4 10^3/uL (1.5-6.6); NEUTROPHILS % (AUTO) 71.5 %; PLT - PLATELET COUNT 221 10^3/uL (130-450); RED CELL DISTRIBUTION WIDTH 14.8 % (12.0-15.0); WHITE BLOOD COUNT 7.6 x10^3/uL (4.8-10.8)
[2018-03-07 06:21] LABS: ALBUMIN 2.9 g/dL (3.2-5.5); ALBUMIN/GLOBULIN RATIO 0.7 (1.0-2.2); CALCIUM 8.4 mg/dL (8.5-10.3); CREATININE 0.9 mg/dL (0.6-1.2); CRP - C-REACTIVE PROTEIN 17.4 mg/dL (0-1.0); TOTAL PROTEIN 6.8 g/dL (6.7-8.2)
[2018-03-07] MEDS: METOPROLOL SUCCINATE 25 MG TABLET PO SCH ×2 (08:30→17:13)
[2018-03-07] MEDS: DOCUSATE SODIUM 250 MG CAPSULE PO SCH (08:31)
[2018-03-07] MEDS: LOSARTAN 50 MG TABLET PO SCH (08:31)
[2018-03-07] MEDS: SENNA 8.6 MG TABLET PO SCH (08:32)
[2018-03-07] MEDS: POLYETHYLENE GLYCOL 3350 17 GM PACKET PO SCH (08:32)
[2018-03-07] MEDS: SODIUM CHLORIDE FLUSH 0.9% 10 ML SYRINGE IVP SCH ×2 (08:33→17:13)
[2018-03-07] MEDS ORDERED: LOSARTAN 50 MG TABLET PO SCH (09:00)
[2018-03-07] MEDS ORDERED: GADOBUTROL 10 MMOL/10 ML VIAL ONE (11:10)
[2018-03-07] MEDS ORDERED: GADOBUTROL 10 MMOL/10 ML VIAL IVP ONE (12:17)
--- NOTE | 2018-03-07 13:24 | MRI Report ---
Reason: cellulitis, increased swelling, redness Procedure Date: 03/07/2018 Accession Number: [id number] / [id number] Procedure: MRI - Knee LT W/WO CPT Code: FULL RESULT: EXAM: LEFT KNEE MRI WITHOUT AND WITH CONTRAST EXAM DATE: 03/07/2018 12:36 PM. CLINICAL HISTORY: Cellulitis, increased swelling, redness. COMPARISON: 03/04/2018 left knee radiographs.. TECHNIQUE: Multiplanar, multisequence T1-weighted and fluid-sensitive sequences of the knee before and after administration of intravenous contrast. IV contrast: . Other: None. FINDINGS: Bones: No fractures or subluxations. No marrow edema or abnormal enhancement. No bone lesions. Articular Cartilage: There is partial-thickness cartilage loss at the posterior weightbearing medial femoral condyle without subchondral edema. 1 x 1.5 cm area of full-thickness cartilage loss at the mesial margin of the lateral femoral condyle without subchondral edema. The patellar and trochlear cartilage is intact. Medial Meniscus: Horizontal oblique tear of the medial meniscus at the posterior horn-body junction extends to the tibial surface. Lateral Meniscus: The lateral meniscus is intact. Cruciate Ligaments: The anterior and posterior cruciate ligaments are intact. Collateral Ligaments: The medial collateral and lateral collateral ligamentous structures are intact. Tendons: The quadriceps, patellar, semimembranosus, and popliteus tendons are unremarkable. Musculature: No edema or fatty atrophy. Other: Small effusion. No loose bodies. A lobulated popliteal cyst projects from the central aspect of the posterior joint capsule. The medial and lateral retinacula are intact. There is diffuse subcutaneous edema and skin thickening with enhancement of the anterior knee, with a fluid distended prepatellar bursa measuring 1.4 x 6.7 cm in cross-section and 13 cm in craniocaudal extent. IMPRESSION: 1. 1.4 x 6.7 x 13 cm peripherally enhancing fluid collection at the anterior knee with surrounding subcutaneous edema and enhancement, favoring cellulitis with prepatellar bursitis, possibly infectious. Differential considerations could also include gout. Correlate with clinical history and consider fluid sampling. 2. Tear of the medial meniscus at the posterior horn-body junction. 3. Intact cruciate and collateral ligaments. Intact lateral meniscus. 4. 1 x 1.5 cm full-thickness cartilage defect at the mesial aspect of the weightbearing lateral femoral condyle, without subchondral edema. 5. Lobulated popliteal cyst projects from the central aspect of the posterior joint capsule. [facility]IA MUSCULOSKELETAL RADIOLOGY SECTION
--- NOTE | 2018-03-07 13:35 | PROVIDER PROGRESS NOTE ---
Subjective - Prog Note Date Prog Note Date: 03/07/18 Prog Note Time: 13:35 - Subjective Pt reports feeling: Improved Subjective: Slim continues to complain of increased left knee pain with it becoming worse while ambulating. He states that he is beginning to get some diarrhea, so I added a probiotic as it is probably the IV antibiotics. He denies shortness of breath, nausea, vomiting, a new cough, rigors, fevers or chest pain. He is expected to undergo an left knee I & D with ortho surgery- Dr. Pantoja. Current Medications - Current Medications Current Medications: Active Medications: Acetaminophen (Tylenol) 650 mg PO Q4HR PRN Hydrocodone Bitart/Acetaminophen ([place] 5/325) 1 tab PO Q4HR PRN Docusate Sodium (Colace 250mg Capsule) 250 - 500 mg PO DAILY JET Piperacillin Sod/Tazobactam (Sod 3.375 gm/ Sodium Chloride) 100 mls @ 200 mls/hr IV Q6H JET Dextrose/Sodium Chloride (D5ns) 1,000 mls @ 125 mls/hr IV .Q8H JET Vancomycin HCl 1 gm/ Sodium (Chloride) 250 mls @ 167 mls/hr IV Q8H JET Losartan Potassium (Cozaar) 25 mg PO DAILY JET Metoprolol Succinate (Toprol Xl) 12.5 mg PO BIDWM JET Polyethylene Glycol (Miralax) 17 gm PO DAILY JET Saccharomyces Boulardii (Florastor) 500 mg PO BIDWM JET Senna (Senokot) 8.6 - 17.2 mg PO DAILY JET Sodium Chloride (Normal Saline Flush 0.9%) 10 ml IVP PRN Sodium Chloride (Normal Saline Flush 0.9%) 10 ml IVP 0100,0900,1700 HOME meds: Losartan [Cozaar] 50 mg PO DAILY 03/04/18 metFORMIN [Glucophage] 1,000 mg PO BIDWM 03/04/18 Objective - Vital Signs/Intake & Output Reviewed Vital Signs: Yes Vital Signs: Vital Signs x48h Temp Pulse Resp BP BP Pulse Ox 03/07/18 13:00 36.7 C 79 16 135/71 H 98 03/07/18 08:12 37.0 C 75 26 H 140/61 H 98 Intake & Output: Intake & Output 12/18/18 03/05/18 03/06/18 03/07/18 23:59 23:59 23:59 23:59 Intake Total 1600 3400.000 2300 920 Output Total 400 2050 1250 1550 Balance 1200 5415.487 4023 -630 - Objective General Appearance: positive: Alert, Moderate distress Eyes Bilateral: positive: PERRL Eyes: OU Conjunctivae pale ENT: positive: Pharynx nml, Dry mucous membranes Neck: positive: Thyroid nml, No JVD, Trachea midline Respiratory: positive: Chest non-tender, No respiratory distress, Breath sounds nml Cardiovascular: positive: Regular rate & rhythm, No gallop Peripheral Pulses: 1+ Radial (R), 1+ Radial (L), 1+ Popliteal (R), 1+ Popliteal (L) Abdomen: positive: Non-tender, Nml bowel sounds, Other (obese, soft) Back: positive: Nml inspection Skin: positive: No rash, Warm, Dry, Pallor Extremities: positive: Pedal edema, Joint swelling (left knee with increased swelling, redness and pain.), Other Neurologic/Psychiatric: positive: Oriented x3, CN's nml (2-12), Motor nml, Sensation nml, Mood/affect nml Reflexes: Bicep (R): 3+, Bicep (L): 3+ - Lab Results Fish Bones: 03/07/18 05:15 03/07/18 05:15 Other Labs: Lab Results x24hrs 03/07/18 03/07/18 03/07/18 Range/Units 12:46 07:43 05:15 WBC (4.8-10.8) x10^3/uL RBC (4.70-6.10) 10^6/uL Hgb (14.0-18.0) g/dL Hct (42.0-52.0) % MCV (80.0-94.0) fL MCH (27.0-31.0) pg MCHC (32.0-36.0) g/dL RDW (12.0-15.0) % Plt Count (130-450) 10^3/uL MPV (7.4-11.4) fL Neut # (Auto) (1.5-6.6) 10^3/uL Lymph # (Auto) (1.5-3.5) 10^3/uL [place] # (Auto) (0.0-1.0) 10^3/uL Eos # (Auto) (0.0-0.7) 10^3/uL Baso # (Auto) (0.0-0.1) 10^3/uL Absolute Nucleated RBC x10^3/uL Nucleated RBC % /100WBC ESR 76 H (0-20) mm/Hr Sodium (135-145) mmol/L Potassium (3.5-5.0) mmol/L Chloride (101-111) mmol/L Carbon Dioxide (21-32) mmol/L Anion Gap (6-13) BUN (6-20) mg/dL Creatinine (0.6-1.2) mg/dL Estimated GFR (MDRD) (>89) Glucose (70-100) mg/dL POC Whole Bld Glucose 93 97 (70 - 100) mg/dL Calcium (8.5-10.3) mg/dL Total Bilirubin (0.2-1.0) mg/dL AST (10-42) IU/L ALT (10-60) IU/L Alkaline Phosphatase (42-121) IU/L C-Reactive Protein (0-1.0) mg/dL Total Protein (6.7-8.2) g/dL Albumin (3.2-5.5) g/dL Globulin (2.1-4.2) g/dL Albumin/Globulin Ratio (1.0-2.2) Last Dose Date Last Dose Time Vancomycin Trough (10.0-20.0) ug/mL 03/07/18 03/07/18 03/06/18 Range/Units 05:15 05:15 20:31 WBC 7.6 (4.8-10.8) x10^3/uL RBC 4.30 L (4.70-6.10) 10^6/uL Hgb 12.9 L (14.0-18.0) g/dL Hct 38.8 L (42.0-52.0) % MCV 90.2 (80.0-94.0) fL MCH 30.0 (27.0-31.0) pg MCHC 33.2 (32.0-36.0) g/dL RDW 14.8 (12.0-15.0) % Plt Count 221 (130-450) 10^3/uL MPV 7.6 (7.4-11.4) fL Neut # (Auto) 5.4 (1.5-6.6) 10^3/uL Lymph # (Auto) 1.1 L (1.5-3.5) 10^3/uL [place] # (Auto) 0.8 (0.0-1.0) 10^3/uL Eos # (Auto) 0.2 (0.0-0.7) 10^3/uL Baso # (Auto) 0.0 (0.0-0.1) 10^3/uL Absolute Nucleated RBC 0.00 x10^3/uL Nucleated RBC % 0.0 /100WBC ESR (0-20) mm/Hr Sodium 135 (135-145) mmol/L Potassium 3.7 (3.5-5.0) mmol/L Chloride 102 (101-111) mmol/L Carbon Dioxide 24 (21-32) mmol/L Anion Gap 9.0 (6-13) BUN 13 (6-20) mg/dL Creatinine 0.9 (0.6-1.2) mg/dL Estimated GFR (MDRD) 83 L (>89) Glucose 119 H (70-100) mg/dL POC Whole Bld Glucose 150 H (70 - 100) mg/dL Calcium 8.4 L (8.5-10.3) mg/dL Total Bilirubin 1.0 (0.2-1.0) mg/dL AST 28 (10-42) IU/L ALT 23 (10-60) IU/L Alkaline Phosphatase 58 (42-121) IU/L C-Reactive Protein 17.4 H (0-1.0) mg/dL Total Protein 6.8 (6.7-8.2) g/dL Albumin 2.9 L (3.2-5.5) g/dL Globulin 3.9 (2.1-4.2) g/dL Albumin/Globulin Ratio 0.7 L (1.0-2.2) Last Dose Date Last Dose Time Vancomycin Trough (10.0-20.0) ug/mL 03/06/18 03/06/18 Range/Units 16:52 13:37 WBC (4.8-10.8) x10^3/uL RBC (4.70-6.10) 10^6/uL Hgb (14.0-18.0) g/dL Hct (42.0-52.0) % MCV (80.0-94.0) fL MCH (27.0-31.0) pg MCHC (32.0-36.0) g/dL RDW (12.0-15.0) % Plt Count (130-450) 10^3/uL MPV (7.4-11.4) fL Neut # (Auto) (1.5-6.6) 10^3/uL Lymph # (Auto) (1.5-3.5) 10^3/uL [place] # (Auto) (0.0-1.0) 10^3/uL Eos # (Auto) (0.0-0.7) 10^3/uL Baso # (Auto) (0.0-0.1) 10^3/uL Absolute Nucleated RBC x10^3/uL Nucleated RBC % /100WBC ESR (0-20) mm/Hr Sodium (135-145) mmol/L Potassium (3.5-5.0) mmol/L Chloride (101-111) mmol/L Carbon Dioxide (21-32) mmol/L Anion Gap (6-13) BUN (6-20) mg/dL Creatinine (0.6-1.2) mg/dL Estimated GFR (MDRD) (>89) Glucose (70-100) mg/dL POC Whole Bld Glucose 100 (70 - 100) mg/dL Calcium (8.5-10.3) mg/dL Total Bilirubin (0.2-1.0) mg/dL AST (10-42) IU/L ALT (10-60) IU/L Alkaline Phosphatase (42-121) IU/L C-Reactive Protein (0-1.0) mg/dL Total Protein (6.7-8.2) g/dL Albumin (3.2-5.5) g/dL Globulin (2.1-4.2) g/dL Albumin/Globulin Ratio (1.0-2.2) Last Dose Date UNK Last Dose Time UNK Vancomycin Trough 11.1 (10.0-20.0) ug/mL ABX Reporting Has patient been on IV antibiotics over the past 48 hours?: Yes Sepsis Event Note (H) - Evaluation Current Stage of Sepsis: Ruled out - Sepsis Criteria Sepsis Criteria: Metabolic: lactate > 2 mmol/L (related to chronic Metformin us e.) Assessment/Plan - Problem List (1) Prepatellar bursitis of left knee Impression: Dr. Pantoja-Orthopedic surgery was consulted today after MRI results showed concerning findings of bursitis that may need further intervention. Plan: Surgery today for a left knee I & D. (2) Cellulitis of leg without foot, left Impression: The patient admits to bumping his left de la fuente about a week ago [place] and this resulted in a dime sized scab. He admits to moderate peripheral neuropathy as a possible contributing factor to this injury. Two days prior to admission, the patient described a series of full body rigors, increased fatigue, loss of appetite, chills, sweats, increased left knee swelling and pain while ambulating. Drainage was appreciated on the morning after admission and a wound culture has a preliminary result of gram positive. On exam today the redness near and around his anterior de la fuente would is all cleared up, but he has more localized left knee redness, continued swelling, and reduced ROM. An MRI was done and ortho consulted. Plan: Continue treatment with IV Zosyn, vanco per pharmacy and continuous monitoring of the left leg. (3) Pain in left leg Impression: The patient admits to a fear of walking due to when the blood rushes to his feet, his cellulitis hurts worse. He has improved tolerance to more activity today and spent much of the morning in the chair per nursing except for during the MRI. Plan: Encourage ambulation/activity. Treat pain with medication. (4) Anorexia symptom Impression: The patient has had a very poor appetite that began prior to admission and continues today. Prior to this illness, the patient had a normal diet. He needs to be able to consume food so that he can take his oral antibiotics at [facility], so he is agreeable to staying another night. The patient admits to much improved oral intake in both frequency and amount. His blood sugars have been 90-100's with reduced liquid intake, so was put on gentle IV fluids. Plan: Continue a regular diet with high protein supplements. Monitor for improved oral intake. (5) Peripheral neuropathy Impression: The patient has good control of his chronic DM, and is obese. These may have been contributing factors to this injury. He denies chronic naturopathic pain. The patient has a loss of sensation to his BLE toes which improved at his ankle region. Plan: Recommend close follow up with regular foot exams by PCP upon discharge. (6) Diabetes mellitus type 2 in obese Impression: The patient denies being diabetic when asked, but later admitted to this disease and claims that he has only been on Metformin for a few years. He is obese and has peripheral neuropathy. A hemoglobin A1C shows very good blood sugar control with it being 5.4%. He has been started on gentle IV fluids today, and will be discontinued at 2330. Blood sugars have been 90-100 today. Plan: Hold metformin as per hospital protocol, discontinue Lantus with his overall low sugars, and continued poor appetite. Continue regular diet for now since his appetite has been very poor. (7) Obesity with body mass index of 30.0-39.9 Impression: The patient has a current BMI of 37.9, a rounded abdomen, but states that he remains very active since him and his live on the [place] on a boat. He is required to walk long distances, which has been serving him well as he appears on exam to be in good shape with very good muscle tone and no evidence of choric vascular complications. Plan: Treat this acute illness, encourage weight management program as per PCP consult.
[2018-03-07] MEDS: SODIUM CHLORIDE FLUSH 0.9% 10 ML SYRINGE IVP PRN (13:37)
--- NOTE | 2018-03-07 14:49 | CONSULTATION NOTE ---
Referring Provider Name of Referring Provider:: Leti ROCHA Consult Date: 03/07/18 Chief Complaint - Chief Complaint Chief Complaint: To evaluate patient for left knee swelling and pain History of Present Illness - Admitted From Admitted From:: Home - History of Present Illness HPI Comment/Other: Jordan is a 72-year-old gentleman in his usual state of health until just less than a week ago when he started to have some swelling and redness in his left leg. He says he bumped his leg on his boat [place] is [place] he lives. He had redness which ended up from his thigh down to his de la fuente. He says that that got much better but that his swelling and redness is stayed in the knee. Patient came to the hospital has been on IV antibiotics and has had culturing of his wound and is generally responded to the antibiotics and essentially was repo rtedly with limited swelling and redness until this morning when the swelling in front of his knee got worse. Now he has pain and swelling in the front of his left knee. He has redness and warmth. Orthopedics consultation was sought. History - Past Medical History Cardiovascular: reports: None, Hypertension Respiratory: reports: None Neuro: reports: Peripheral neuropathy Endocrine/Autoimmune: reports: Type 2 diabetes (diet controlled, on Metformin.) GI: reports: Hiatal hernia DIGITAL COORDINATOR: reports: None : reports: Nocturia HEENT: reports: Chronic hearing loss Psych: reports: None Musculoskeletal: reports: Osteoarthritis, Fatigue Derm: reports: None MRSA Hx?: No - Past Surgical History General: reports: Hiatal hernia repair Ortho: reports: Hip replacement (bilateral-hardware in place.), Shoulder arthroplasty Other past surgical history: Traumatic logging accident in 1969, with hardware removal in 1971 to left lower leg. - Family & Social History Family History: Mother: , Father: Family History Comment/Other: The patient states that both of his parents are and they had no known past medical history. Living arrangement: At home (Lives in the [place] on a boat with his .) Living Situation: With spouse/s.o. Social History Notes: The patient is retired and lives independently in the [place] on a boat with is . His [place] has just had a litter of puppies. He denies the use of alcohol, tobacco or illicit drugs. He wishes to be a DNR. - Substance History Use: Uses substance without health or social issues: NONE Abuse: Recurrent use of substance despite neg consequences: NONE Dependence: Experiences withdrawal or developed tolerances: NONE - POLST Patient has POLST: No POLST Status: DNR Meds/Allgy - Home Medications Home Medications: Ambulatory Orders Medication Instructions Recorded Confirmed Losartan [Cozaar] 50 mg PO DAILY 03/04/18 03/04/18 metFORMIN [Glucophage] 1,000 mg PO BIDWM 03/04/18 03/04/18 - Allergies Allergies/Adverse Reactions: Allergies Allergy/AdvReac Type Severity Reaction Status Date / Time No Known Drug Allergies Allergy Verified 03/04/18 09:40 Exam - Vital Signs Vital Signs: Vital Signs x48h Temp Pulse Resp BP BP Pulse Ox 03/07/18 13:00 36.7 C 79 16 135/71 H 98 03/07/18 08:12 37.0 C 75 26 H 140/61 H 98 - Physical Exam Comments/Other: Pain is well-developed obese 72-year-old gentleman in no acute distress. He is cooperative with exam. Patient's left lower extremity demonstrates flexion extension of toes as ankle and knee. Thigh and calf soft nontender his left prepatellar region is signif icantly swollen and erythematous with warmth. There is fluctuance of the prepatellar bursal region. This extends approximately 8 x 10 cm with a depth of at least 2 cm. There is no more proximal or distal erythema appreciated. There is a eschar in the pre-tibial region. Calf thigh and foot compartments soft. Conclusion/Plan - Diagnosis Diagnosis: Left prepatellar septic bursitis. - Lab Results Lab results reviewed: Yes Fish Bones: 03/07/18 05:15 03/07/18 05:15 - Other Other Results/Comments: Jordan is a 72-year-old gentleman with left knee prepatellar septic bursitis. This followed an episode of cellulitis which is otherwise generally resolved. Patient has a history of bilateral total hip arthroplasties. Fortunately there shows no evidence of involvement of joints at this time. Given his failure to respond to antibiotics as a pertains the bursa itself and given these other risk factors I would recommend debridement irrigation of the left knee prepatellar bursal region with possible closure versus VAC dressing. Discussed surgery with him talked about operative and nonoperative treatment options and risk benefits alternatives of each. Talked potential operative risks including but not limited to infection wound problems nerve or blood vessel injury numbness tingling weakness pain stiffness decreased range of motion decreased strength decreased function worsening his condition failure to "cure" patient's problem iatrogenic injury bleeding blood loss blood clot blood clot embolus positioning complications anesthetic complications including but not limited to major cardiovascular or vascular complications even . He verbalized understanding above verbalize wish to proceed with operative treatment. Informed consent was given. Patient given preoperative and postoperative instructions and expectations. Expected rehabilitation course is reviewed. We will take cultures at the time and resume antibiotics. We will schedule surgery urgently. Proposed procedure is left knee prepatellar bursa debridement irrigation closure versus VAC dressing.
[2018-03-07] MEDS: SACCHAROMYCES BOULARDII 250 MG CAPSULE PO SCH ×2 (15:03→17:16)
[2018-03-07] MEDS: DEXTROSE 5%-0.9% NACL 1,000 ML IV SCH ×2 (15:03→21:35)
--- NOTE | 2018-03-07 18:29 | ANESTHESIA ---
Pre-Anesthesia VS, & Labs - Diagnosis Diagnosis Left prepatellar septic bursitis. - Procedure L knee bursa washout, I&D Vital Signs: Temp Pulse Resp BP Pulse Ox 37.8 C H 81 16 147/66 H 98 03/07/18 16:22 03/07/18 16:22 03/07/18 16:22 03/07/18 16:22 03/07/18 16:22 Height 6 ft 2 in Weight (kg) 136.5 kg Body Mass Index 37.9 - NPO Last Food Intake: 03/19 sandwich at 1300 - Lab Results Current Lab Results: Laboratory Tests 03/07/18 16:52: POC Whole Bld Glucose 106 H 03/07/18 12:46: POC Whole Bld Glucose 93 03/07/18 07:43: POC Whole Bld Glucose 97 03/07/18 05:15: ESR 76 H 03/07/18 05:15: Sodium 135, Potassium 3.7, Chloride 102, Carbon Dioxide 24, Anion Gap 9.0, BUN 13, Creatinine 0.9, Estimated GFR (MDRD) 83 L, Glucose 119 H, Calcium 8.4 L, Total Bilirubin 1.0, AST 28, ALT 23, Alkaline Phosphatase 58, C- Reactive Protein 17.4 H, Total Protein 6.8, Albumin 2.9 L, Globulin 3.9, Albumin/Globulin Ratio 0.7 L 03/07/18 05:15: WBC 7.6, RBC 4.30 L, Hgb 12.9 L, Hct 38.8 L, MCV 90.2, MCH 30.0, MCHC 33.2, RDW 14.8, Plt Count 221, MPV 7.6, Neut # (Auto) 5.4, Lymph # (Auto) 1.1 L, [place] # (Auto) 0.8, Eos # (Auto) 0.2, Baso # (Auto) 0.0, Absolute Nucleated RBC 0.00, Nucleated RBC % 0.0 03/06/18 20:31: POC Whole Bld Glucose 150 H 03/06/18 16:52: POC Whole Bld Glucose 100 03/06/18 13:37: Last Dose Date UNK, Last Dose Time UNK, Vancomycin Trough 11.1 03/06/18 11:22: POC Whole Bld Glucose 128 H 03/06/18 07:31: POC Whole Bld Glucose 122 H 03/06/18 05:20: ESR 69 H 03/06/18 05:20: Sodium 135, Potassium 3.5, Chloride 102, Carbon Dioxide 23, Anion Gap 10.0, BUN 12, Creatinine 0.9, Estimated GFR (MDRD) 83 L, Glucose 127 H , Calcium 8.2 L, Total Bilirubin 1.1 H, AST 36, ALT 21, Alkaline Phosphatase 55, C-Reactive Protein 25.2 H, Total Protein 7.0, Albumin 3.0 L, Globulin 4.0, Albumin/Globulin Ratio 0.8 L 03/06/18 05:20: WBC 8.9, RBC 4.22 L, Hgb 12.7 L, Hct 38.2 L, MCV 90.5, MCH 30.1, MCHC 33.3, RDW 14.6, Plt Count 189, MPV 8.0, Neut # (Auto) 6.9 H, Lymph # (Auto) 0.9 L, [place] # (Auto) 0.8, Eos # (Auto) 0.2, Baso # (Auto) 0.1, Absolute Nucleated RBC 0.00, Nucleated RBC % 0.0 03/05/18 11:36: POC Whole Bld Glucose 117 H 03/05/18 07:34: POC Whole Bld Glucose 112 H 03/05/18 05:05: ESR 75 H 03/05/18 05:05: Sodium 135, Potassium 3.1 L, Chloride 101, Carbon Dioxide 24, Anion Gap 10.0, BUN 14, Creatinine 1.0, Estimated GFR (MDRD) 74 L, Glucose 115 H , Calcium 8.4 L, Phosphorus 2.6, Magnesium 1.7, Total Bilirubin 1.4 H, AST 39, ALT 19, Alkaline Phosphatase 50, C-Reactive Protein 33.7 H, Total Protein 6.9, Albumin 3.1 L, Globulin 3.8, Albumin/Globulin Ratio 0.8 L 03/05/18 05:05: WBC 12.2 H, RBC 4.31 L, Hgb 13.0 L, Hct 38.0 L, MCV 88.1, MCH 30.1, MCHC 34.1, RDW 14.8, Plt Count 152, MPV 8.0, Neut # (Auto) 10.4 H, Lymph # (Auto) 1.0 L, [place] # (Auto) 0.6, Eos # (Auto) 0.1, Baso # (Auto) 0.1, Absolute Nucleated RBC 0.00, Nucleated RBC % 0.0 03/04/18 : C-React Prot High Sens 352.5 03/04/18 : ESR 24 H 03/04/18 20:23: POC Whole Bld Glucose 119 H 03/04/18 16:35: POC Whole Bld Glucose 122 H 03/04/18 13:33: Glycated Hemoglobin 5.6, Estim Average Glucose 114 H 03/04/18 11:50: Sodium 134 L, Potassium 3.6, Chloride 97 L, Carbon Dioxide 27, Anion Gap 10.0, BUN 15, Creatinine 1.0, Estimated GFR (MDRD) 74 L, Glucose 142 H , Calcium 9.1, Total Bilirubin 1.2 H, AST 19, ALT 17, Alkaline Phosphatase 53, Total Protein 7.9, Albumin 3.9, Globulin 4.0, Albumin/Globulin Ratio 1.0, Lipase 17 L 03/04/18 11:50: WBC 16.1 H, RBC 4.75, Hgb 14.4, Hct 42.1, MCV 88.6, MCH 30.3, MCHC 34.2, RDW 14.7, Plt Count 177, MPV 7.8, Neut # (Auto) 14.3 H, Lymph # (Auto) 0.9 L, [place] # (Auto) 0.8, Eos # (Auto) 0.0, Baso # (Auto) 0.1, Absolute Nucleated RBC 0.00, Nucleated RBC % 0.0 Lab results reviewed: Yes Fish Bones: 03/07/18 05:15 03/07/18 05:15 Home Medications and Allergies Home Medications: Ambulatory Orders Losartan [Cozaar] 50 mg PO DAILY 03/04/18 metFORMIN [Glucophage] 1,000 mg PO BIDWM 03/04/18 Active Medications Acetaminophen (Tylenol) 650 mg PO Q4HR PRN PRN Reason: Pain or Fever > 38C (100.4F) Last Admin: 03/07/18 08:36 Dose: 650 mg Hydrocodone Bitart/Acetaminophen ([place] 5/325) 1 tab PO Q4HR PRN PRN Reason: PAIN Last Admin: 03/07/18 17:18 Dose: 1 tab Docusate Sodium (Colace 250mg Capsule) 250 - 500 mg PO DAILY [facility] Last Admin: 03/07/18 08:31 Dose: 250 mg Piperacillin Sod/Tazobactam (Sod 3.375 gm/ Sodium Chloride) 100 mls @ 200 mls/hr IV Q6H [facility] Last Infusion: 03/07/18 18:04 Dose: Infused Dextrose/Sodium Chloride (D5ns) 1,000 mls @ 125 mls/hr IV .Q8H [facility] Stop: 03/07/18 23:30 Last Admin: 03/07/18 15:03 Dose: 125 mls/hr Vancomycin HCl 1 gm/ Sodium (Chloride) 250 mls @ 167 mls/hr IV Q8H [facility] Losartan Potassium (Cozaar) 25 mg PO DAILY [facility] Last Admin: 03/07/18 08:31 Dose: 25 mg Metoprolol Succinate (Toprol Xl) 12.5 mg PO BIDWM [facility] Last Admin: 03/07/18 17:13 Dose: 12.5 mg Polyethylene Glycol (Miralax) 17 gm PO DAILY [facility] Last Admin: 03/07/18 08:32 Dose: 17 gm Saccharomyces Boulardii (Florastor) 500 mg PO BIDWM [facility] Last Admin: 03/07/18 17:16 Dose: 500 mg Senna (Senokot) 8.6 - 17.2 mg PO DAILY [facility] Last Admin: 03/07/18 08:32 Dose: 8.6 mg Sodium Chloride (Normal Saline Flush 0.9%) 10 ml IVP PRN PRN PRN Reason: NEEDED PER PROVIDER ORDERS Last Admin: 03/07/18 13:37 Dose: 10 ml Sodium Chloride (Normal Saline Flush 0.9%) 10 ml IVP 0100,0900,1700 [facility] Last Admin: 03/07/18 17:13 Dose: Not Given Losartan [Cozaar] 50 mg PO DAILY 03/04/18 metFORMIN [Glucophage] 1,000 mg PO BIDWM 03/04/18 Allergies/Adverse Reactions: Allergies Allergy/AdvReac Type Severity Reaction Status Date / Time No Known Drug Allergies Allergy Verified 03/04/18 09:40 Anes History & Medical History - Anesthetic History Anesthesia Complications: reports: No previous complications Family history of Anesthesia Complications: Denies Family history of Malignant Hyperthermia: Denies - Medical History Cardiovascular: reports: None, Hypertension Pulmonary: reports: None Gastrointestinal: reports: Hiatal hernia Urinary: reports: Nocturia Neuro: reports: Peripheral neuropathy Musculoskeletal: reports: Osteoarthritis, Fatigue Endocrine/Autoimmune: reports: Type 2 diabetes (diet controlled, on Metformin.) Blood Disorders: reports: None Skin: reports: None Smoking Status: Never smoker - Surgical History General: Hiatal hernia repair Orthopedic: Hip replacement (bilateral-hardware in place.), Shoulder arthroplasty Other Past Surgical History: Traumatic logging accident in 1969, with hardware removal in 1971 to left lower leg. Exam General: Alert, Oriented x3, Cooperative Dental: Loose/Frag (none loose, several broken/chipped), Poor dentition Neck Mobility: Normal Mallampati classification: II Thyromental Distance: 4-6 cm Respiratory: Lungs clear, Normal breath sounds Cardiovascular: Regular rate Mental/Cognitive Status: Alert/Oriented X3 Cognitive Status: Within normal limits Plan Anesthesia Type: General (pt refused SAB) Consent for Procedure(s) Verified and Reviewed: Yes Code Status: Do Not Attempt Resuscitation ASA classification: 2-Mild systemic disease Is this case an emergency?: No
[2018-03-07] MEDS ORDERED: LACTATED RINGERS 1,000 ML IV ONE (18:58)
[2018-03-07] MEDS ORDERED: PROPOFOL 200 MG/20 ML VIAL IVP ONE (19:30)
[2018-03-07] MEDS ORDERED: fentaNYL 100 MCG/2 ML VIAL IVP ONE (19:30)
[2018-03-07] MEDS ORDERED: MIDAZOLAM 2 MG/2 ML VIAL IVP ONE (19:30)
[2018-03-07] MEDS ORDERED: DEXAMETHASONE 4 MG/ML VIAL IVP ONE (19:30)
[2018-03-07] MEDS ORDERED: LIDOCAINE-MPF 2% 5 ML VIAL IM ONE (19:30)
[2018-03-07] MEDS ORDERED: ONDANSETRON 4 MG/2 ML VIAL IVP ONE (19:30)
--- NOTE | 2018-03-07 20:17 | IMMEDIATE POSTOPERATIVE NOTE ---
Immediate Postoperative Note - Procedure Note Procedure Date: 03/07/18 Pre-Op Diagnosis: LEFT KNEE PREPATELLAR SEPTIC BURSITIS Procedure: LEFT KNEE PREPATELLAR BURSAL I&D AND CLOSURE Post-Op Diagnosis: SAME Primary Surgeon: Edel VALDEZ MD Anesthesia Type: General LMA Findings: PURULENT COLLECTION PRE PATELLAR BURSA LEFT Complications: No complications Estimated Blood Loss (in cc): 150 Specimens and Cultures: SPECIMENS SENT ANAEROBE,AEROBE C&S Plan of Care: Patient tolerated procedure well instrument and sponge counts correct patient extubated and transferred to the recovery room in stable condition. Patient with remain on IV antibiotics per hospitalist service. He would have SCD boots when in bed. He would be on appropriate analgesic medications and DVT prophylaxis. Call made to patient's Kelly Quintero unavailable via telephone.
[2018-03-07] MEDS ORDERED: ONDANSETRON 4 MG/2 ML VIAL IVP PRN (20:19)
[2018-03-07] MEDS ORDERED: SODIUM CHLORIDE FLUSH 0.9% 10 ML SYRINGE IVP PRN (20:19)
[2018-03-07] MEDS ORDERED: ACETAMINOPHEN 1,000 MG/100 ML 100 ML IV PRN (20:19)
[2018-03-07] MEDS ORDERED: PROCHLORPERAZINE 10 MG/2 ML VIAL IVP PRN (20:19)
[2018-03-07] MEDS: HYDROmorphone 1 MG/ML CARPUJECT ONE ×2 (20:42→20:48)
[2018-03-07] MEDS: VANCOMYCIN INJ 1 GM in SODIUM CHLORIDE 0.9% 250 ML IV SCH (22:17)
[2018-03-08] MEDS: SODIUM CHLORIDE FLUSH 0.9% 10 ML SYRINGE IVP SCH ×6 (03:35→17:01)
[2018-03-08] MEDS: PIPERACILLIN/TAZOBACTAM 3.375 GM in SODIUM CHLORIDE 0.9% MINIBAG 100 ML IV SCH ×3 (05:12→17:00)
[2018-03-08] MEDS: VANCOMYCIN INJ 1 GM in SODIUM CHLORIDE 0.9% 250 ML IV SCH ×2 (06:30→14:36)
[2018-03-08] MEDS: SODIUM CHLORIDE FLUSH 0.9% 10 ML SYRINGE IVP PRN (06:31)
[2018-03-08] MEDS: SACCHAROMYCES BOULARDII 250 MG CAPSULE PO SCH ×2 (08:59→17:00)
[2018-03-08] MEDS: ASPIRIN 325 MG TABLET PO SCH ×2 (08:59→17:00)
[2018-03-08] MEDS: METOPROLOL SUCCINATE 25 MG TABLET PO SCH ×2 (08:59→17:00)
[2018-03-08] MEDS: LOSARTAN 50 MG TABLET PO SCH (08:59)
[2018-03-08] MEDS: DOCUSATE SODIUM 250 MG CAPSULE PO SCH (09:00)
[2018-03-08] MEDS: POLYETHYLENE GLYCOL 3350 17 GM PACKET PO SCH (09:00)
[2018-03-08] MEDS: SENNA 8.6 MG TABLET PO SCH (09:00)
[2018-03-08 09:33] LABS: BASOPHILS # (AUTO) 0.1 10^3/uL (0.0-0.1); BASOPHILS % (AUTO) 0.5 %; EOSINOPHILS % (AUTO) 0.1 %; LYMPHOCYTES # (AUTO) 0.9 10^3/uL (1.5-3.5); LYMPHOCYTES % (AUTO) 8.5 %; MEAN CORPUSCULAR HGB CONC 33.9 g/dL (32.0-36.0); MEAN CORPUSCULAR VOLUME 88.4 fL (80.0-94.0); MEAN PLATELET VOLUME 7.4 fL (7.4-11.4); MONOCYTES # (AUTO) 0.7 10^3/uL (0.0-1.0); MONOCYTES % (AUTO) 6.4 %; NEUTROPHILS # (AUTO) 8.7 10^3/uL (1.5-6.6); NEUTROPHILS % (AUTO) 84.5 %; PLT - PLATELET COUNT 291 10^3/uL (130-450); RED BLOOD COUNT 4.02 10^6/uL (4.70-6.10); RED CELL DISTRIBUTION WIDTH 14.4 % (12.0-15.0); WHITE BLOOD COUNT 10.3 x10^3/uL (4.8-10.8)
[2018-03-08 09:45] LABS: ALBUMIN/GLOBULIN RATIO 0.7 (1.0-2.2); BILIRUBIN,TOTAL 0.7 mg/dL (0.2-1.0); CALCIUM 8.5 mg/dL (8.5-10.3); MAGNESIUM 2.2 mg/dL (1.7-2.8); PHOSPHORUS 2.5 mg/dL (2.5-4.6); TOTAL PROTEIN 7.3 g/dL (6.7-8.2)
--- NOTE | 2018-03-08 10:16 | PROVIDER PROGRESS NOTE ---
Subjective - Prog Note Date Prog Note Date: 03/08/18 Prog Note Time: 09:00 - Subjective Pt reports feeling: Improved Subjective: Slim admits to improved comfort since his surgical procedure last evening which was a left knee I & D. He denies chest pain, nausea, vomiting, rashes, bleeding dizziness or a new cough. Current Medications - Current Medications Current Medications: Active Medications: Acetaminophen (Tylenol) 650 mg PO Q4HR PRN Hydrocodone Bitart/Acetaminophen ([place] 5/325) 1 tab PO Q4HR PRN Aspirin (Ally) 325 mg PO BIDWM JET Docusate Sodium (Colace 250mg Capsule) 250 - 500 mg PO DAILY JET Piperacillin Sod/Tazobactam (Sod 3.375 gm/ Sodium Chloride) 100 mls @ 200 mls/hr IV Q6H JET Vancomycin HCl 1 gm/ Sodium (Chloride) 250 mls @ 167 mls/hr IV Q8H JET Acetaminophen (Ofirmev) 100 mls @ 400 mls/hr IV Q6HR PRN Losartan Potassium (Cozaar) 25 mg PO DAILY JET Metoprolol Succinate (Toprol Xl) 12.5 mg PO BIDWM JET Ondansetron HCl (Zofran Inj) 4 mg IVP Q6HR PRN Polyethylene Glycol (Miralax) 17 gm PO DAILY JET Prochlorperazine Edisylate (Compazine Inj) 10 mg IVP Q6HR PRN Saccharomyces Boulardii (Florastor) 500 mg PO BIDWM [facility] Senna (Senokot) 8.6 - 17.2 mg PO DAILY [facility] Lantus 5 units daily SQ HOME meds: Losartan [Cozaar] 50 mg PO DAILY 03/04/18 metFORMIN [Glucophage] 1,000 mg PO BIDWM 03/04/18 Objective - Vital Signs/Intake & Output Reviewed Vital Signs: Yes Vital Signs: Vital Signs x48h Temp Pulse Resp BP Pulse Ox 03/08/18 08:32 36.5 C 78 16 127/68 94 Intake & Output: Intake & Output 03/05/18 03/06/18 03/07/18 03/08/18 23:59 23:59 23:59 23:59 Intake Total 3400.000 2300 2936.667 1600 Output Total 2050 1250 2050 Balance 8695.284 7660 393.005 1918 - Objective General Appearance: positive: No acute distress, Alert Eyes Bilateral: positive: Normal inspection ENT: positive: Pharynx nml, No signs of dehydration Neck: positive: Thyroid nml, No JVD Respiratory: positive: Chest non-tender, No respiratory distress, Breath sounds nml Cardiovascular: positive: Regular rate & rhythm, No gallop Peripheral Pulses: 1+ Radial (R), 1+ Radial (L) Abdomen: positive: Non-tender, Nml bowel sounds, Other (rounded, soft) Back: positive: Nml inspection Skin: positive: No rash, Warm, Dry Extremities: positive: Non-tender, Full ROM, Pedal edema, Joint swelling (left knee, dressing in place. Post op) Neurologic/Psychiatric: positive: Oriented x3, CN's nml (2-12), Motor nml, Sensation nml, Mood/affect nml Reflexes: Bicep (R): 3+, Bicep (L): 3+ - Lab Results Fish Bones: 03/08/18 09:20 03/08/18 09:20 Other Labs: Lab Results x24hrs 03/08/18 03/08/18 03/08/18 Range/Units 09:20 09:20 09:20 WBC (4.8-10.8) x10^3/uL RBC (4.70-6.10) 10^6/uL Hgb (14.0-18.0) g/dL Hct (42.0-52.0) % MCV (80.0-94.0) fL MCH (27.0-31.0) pg MCHC (32.0-36.0) g/dL RDW (12.0-15.0) % Plt Count (130-450) 10^3/uL MPV (7.4-11.4) fL Neut # (Auto) (1.5-6.6) 10^3/uL Lymph # (Auto) (1.5-3.5) 10^3/uL Irion # (Auto) (0.0-1.0) 10^3/uL Eos # (Auto) (0.0-0.7) 10^3/uL Baso # (Auto) (0.0-0.1) 10^3/uL Absolute Nucleated RBC x10^3/uL Nucleated RBC % /100WBC Sodium 136 (135-145) mmol/L Potassium 3.9 (3.5-5.0) mmol/L Chloride 103 (101-111) mmol/L Carbon Dioxide 23 (21-32) mmol/L Anion Gap 10.0 (6-13) BUN 14 (6-20) mg/dL Creatinine 1.0 (0.6-1.2) mg/dL Estimated GFR (MDRD) 74 L (>89) Glucose 204 H (70-100) mg/dL POC Whole Bld Glucose (70 - 100) mg/dL Lactic Acid 1.8 (0.5-2.2) mmol/L Calcium 8.5 (8.5-10.3) mg/dL Phosphorus 2.5 (2.5-4.6) mg/dL Magnesium 2.2 (1.7-2.8) mg/dL Total Bilirubin 0.7 (0.2-1.0) mg/dL AST 26 (10-42) IU/L ALT 23 (10-60) IU/L Alkaline Phosphatase 62 (42-121) IU/L B-Natriuretic Peptide 72 (5-100) pg/mL Total Protein 7.3 (6.7-8.2) g/dL Albumin 3.0 L (3.2-5.5) g/dL Globulin 4.3 H (2.1-4.2) g/dL Albumin/Globulin Ratio 0.7 L (1.0-2.2) 03/08/18 03/07/18 03/07/18 Range/Units 09:20 21:14 20:18 WBC 10.3 (4.8-10.8) x10^3/uL RBC 4.02 L (4.70-6.10) 10^6/uL Hgb 12.0 L (14.0-18.0) g/dL Hct 35.5 L (42.0-52.0) % MCV 88.4 (80.0-94.0) fL MCH 30.0 (27.0-31.0) pg MCHC 33.9 (32.0-36.0) g/dL RDW 14.4 (12.0-15.0) % Plt Count 291 (130-450) 10^3/uL MPV 7.4 (7.4-11.4) fL Neut # (Auto) 8.7 H (1.5-6.6) 10^3/uL Lymph # (Auto) 0.9 L (1.5-3.5) 10^3/uL Irion # (Auto) 0.7 (0.0-1.0) 10^3/uL Eos # (Auto) 0.0 (0.0-0.7) 10^3/uL Baso # (Auto) 0.1 (0.0-0.1) 10^3/uL Absolute Nucleated RBC 0.00 x10^3/uL Nucleated RBC % 0.0 /100WBC Sodium (135-145) mmol/L Potassium (3.5-5.0) mmol/L Chloride (101-111) mmol/L Carbon Dioxide (21-32) mmol/L Anion Gap (6-13) BUN (6-20) mg/dL Creatinine (0.6-1.2) mg/dL Estimated GFR (MDRD) (>89) Glucose (70-100) mg/dL POC Whole Bld Glucose 167 H 170 H (70 - 100) mg/dL Lactic Acid (0.5-2.2) mmol/L Calcium (8.5-10.3) mg/dL Phosphorus (2.5-4.6) mg/dL Magnesium (1.7-2.8) mg/dL Total Bilirubin (0.2-1.0) mg/dL AST (10-42) IU/L ALT (10-60) IU/L Alkaline Phosphatase (42-121) IU/L B-Natriuretic Peptide (5-100) pg/mL Total Protein (6.7-8.2) g/dL Albumin (3.2-5.5) g/dL Globulin (2.1-4.2) g/dL Albumin/Globulin Ratio (1.0-2.2) 03/07/18 03/07/18 Range/Units 16:52 12:46 WBC (4.8-10.8) x10^3/uL RBC (4.70-6.10) 10^6/uL Hgb (14.0-18.0) g/dL Hct (42.0-52.0) % MCV (80.0-94.0) fL MCH (27.0-31.0) pg MCHC (32.0-36.0) g/dL RDW (12.0-15.0) % Plt Count (130-450) 10^3/uL MPV (7.4-11.4) fL Neut # (Auto) (1.5-6.6) 10^3/uL Lymph # (Auto) (1.5-3.5) 10^3/uL Irion # (Auto) (0.0-1.0) 10^3/uL Eos # (Auto) (0.0-0.7) 10^3/uL Baso # (Auto) (0.0-0.1) 10^3/uL Absolute Nucleated RBC x10^3/uL Nucleated RBC % /100WBC Sodium (135-145) mmol/L Potassium (3.5-5.0) mmol/L Chloride (101-111) mmol/L Carbon Dioxide (21-32) mmol/L Anion Gap (6-13) BUN (6-20) mg/dL Creatinine (0.6-1.2) mg/dL Estimated GFR (MDRD) (>89) Glucose (70-100) mg/dL POC Whole Bld Glucose 106 H 93 (70 - 100) mg/dL Lactic Acid (0.5-2.2) mmol/L Calcium (8.5-10.3) mg/dL Phosphorus (2.5-4.6) mg/dL Magnesium (1.7-2.8) mg/dL Total Bilirubin (0.2-1.0) mg/dL AST (10-42) IU/L ALT (10-60) IU/L Alkaline Phosphatase (42-121) IU/L B-Natriuretic Peptide (5-100) pg/mL Total Protein (6.7-8.2) g/dL Albumin (3.2-5.5) g/dL Globulin (2.1-4.2) g/dL Albumin/Globulin Ratio (1.0-2.2) ABX Reporting Has patient been on IV antibiotics over the past 48 hours?: Yes Sepsis Event Note (H) - Evaluation Current Stage of Sepsis: Ruled out - Sepsis Criteria Sepsis Criteria: Metabolic: lactate > 2 mmol/L (related to chronic Metformin use.) Assessment/Plan - Problem List (1) Prepatellar bursitis of left knee Impression: Dr. Pantoja-Orthopedic surgery was consulted after MRI results showed concerning findings of bursitis that needed further intervention. The patient underwent a left knee I & D without post-op complications on 03/07/18. It remains with an DARIO wrap. Plan: Surgery to follow, elevate when out of bed. Continue IV antibiotics and await culture. (2) Cellulitis of leg without foot, left Impression: The patient admits to bumping his left de la fuente about a week ago [place] and this resulted in a dime sized scab. He admits to moderate peripheral neuropathy as a possible contributing factor to this injury. Two days prior to admission, the patient described a series of full body rigors, increased fatigue, loss of appetite, chills, sweats, increased left knee swelling and pain while ambulating. Drainage was appreciated on the morning after admission and a wound culture has a preliminary result of gram positive. The patient was noted to have increased redness that was localized to his left knee, continued swelling, and reduced ROM. An MRI was done and ortho consulted. The patient is now post op as he underwent a left knee I & D on 03/07/18. Plan: Continue treatment with IV Zosyn, vanco per pharmacy and continuous monitoring of the left leg. (3) Pain in left leg Impression: The patient admits to a fear of walking due to when the blood rushes to his feet, his cellulitis hurts worse. He has improved tolerance to more activity and is much more comfortable after undergoing his I & D of the left knee last evening. Plan: Encourage ambulation/activity, elevate while in the chair. Treat pain with medication. (4) Anorexia symptom Impression: The patient has had a very poor appetite that began prior to admission and continues today. Prior to this illness, the patient had a normal diet. The patient admits to much improved oral intake in both frequency and amount. His blood sugars have been increased so he was started on Lantus daily. Plan: Continue a regular diet with high protein supplements. Monitor for improved oral intake. (5) Peripheral neuropathy Impression: The patient has good control of his chronic DM, and is obese. These may have been contributing factors to this injury. He denies chronic naturopathic pain. The patient has a loss of sensation to his BLE toes which improved at his ankle region. Plan: Recommend close follow up with regular foot exams by PCP upon discharge. (6) Diabetes mellitus type 2 in obese Impression: The patient denies being diabetic when asked, but later admitted to this disease and claims that he has only been on Metformin for a few years. He is obese and has peripheral neuropathy. A hemoglobin A1C shows very good blood sugar control with it being 5.4%. He had an elevated fasting blood sugar of 167 today. Plan: Hold metformin as per hospital protocol, Lantus 5 units daily. Continue regular diet for now since his appetite has been very poor. (7) Obesity with body mass index of 30.0-39.9 Impression: The patient has a current BMI of 37.9, a rounded abdomen, but states that he remains very active since him and his live on the [place] on a boat. He is required to walk long distances, which has been serving him well as he appears on exam to be in good shape with very good muscle tone and no evidence of choric vascular complications. Plan: Treat this acute illness, encourage weight management program as per PCP consult.
--- NOTE | 2018-03-08 11:52 | PROVIDER PROGRESS NOTE ---
Subjective - Prog Note Date Prog Note Date: 03/08/18 - Subjective Pt reports feeling: Improved (Patient says he is much improved since yesterday. He feels like his redness is less than discomfort is much better.) Objective - Vital Signs/Intake & Output Vital Signs: Vital Signs x48h Temp Pulse Resp BP Pulse Ox 03/08/18 08:32 36.5 C 78 16 127/68 94 Intake & Output: Intake & Output 03/05/18 03/06/18 03/07/18 03/08/18 23:59 23:59 23:59 23:59 Intake Total 3400.000 2300 2936.667 1700 Output Total 2050 1250 2050 Balance 7553.293 3710 617.685 2490 - Lab Results Fish Bones: 03/08/18 09:20 03/08/18 09:20 Other Labs: Lab Results x24hrs 03/08/18 03/08/18 03/08/18 Range/Units 10:58 09:20 09:20 WBC (4.8-10.8) x10^3/uL RBC (4.70-6.10) 10^6/uL Hgb (14.0-18.0) g/dL Hct (42.0-52.0) % MCV (80.0-94.0) fL MCH (27.0-31.0) pg MCHC (32.0-36.0) g/dL RDW (12.0-15.0) % Plt Count (130-450) 10^3/uL MPV (7.4-11.4) fL Neut # (Auto) (1.5-6.6) 10^3/uL Lymph # (Auto) (1.5-3.5) 10^3/uL Quay # (Auto) (0.0-1.0) 10^3/uL Eos # (Auto) (0.0-0.7) 10^3/uL Baso # (Auto) (0.0-0.1) 10^3/uL Absolute Nucleated RBC x10^3/uL Nucleated RBC % /100WBC Sodium (135-145) mmol/L Potassium (3.5-5.0) mmol/L Chloride (101-111) mmol/L Carbon Dioxide (21-32) mmol/L Anion Gap (6-13) BUN (6-20) mg/dL Creatinine (0.6-1.2) mg/dL Estimated GFR (MDRD) (>89) Glucose (70-100) mg/dL POC Whole Bld Glucose 145 H (70 - 100) mg/dL Lactic Acid 1.8 (0.5-2.2) mmol/L Calcium (8.5-10.3) mg/dL Phosphorus (2.5-4.6) mg/dL Magnesium (1.7-2.8) mg/dL Total Bilirubin (0.2-1.0) mg/dL AST (10-42) IU/L ALT (10-60) IU/L Alkaline Phosphatase (42-121) IU/L B-Natriuretic Peptide 72 (5-100) pg/mL Total Protein (6.7-8.2) g/dL Albumin (3.2-5.5) g/dL Globulin (2.1-4.2) g/dL Albumin/Globulin Ratio (1.0-2.2) 03/08/18 03/08/18 03/07/18 Range/Units 09:20 09:20 21:14 WBC 10.3 (4.8-10.8) x10^3/uL RBC 4.02 L (4.70-6.10) 10^6/uL Hgb 12.0 L (14.0-18.0) g/dL Hct 35.5 L (42.0-52.0) % MCV 88.4 (80.0-94.0) fL MCH 30.0 (27.0-31.0) pg MCHC 33.9 (32.0-36.0) g/dL RDW 14.4 (12.0-15.0) % Plt Count 291 (130-450) 10^3/uL MPV 7.4 (7.4-11.4) fL Neut # (Auto) 8.7 H (1.5-6.6) 10^3/uL Lymph # (Auto) 0.9 L (1.5-3.5) 10^3/uL Quay # (Auto) 0.7 (0.0-1.0) 10^3/uL Eos # (Auto) 0.0 (0.0-0.7) 10^3/uL Baso # (Auto) 0.1 (0.0-0.1) 10^3/uL Absolute Nucleated RBC 0.00 x10^3/uL Nucleated RBC % 0.0 /100WBC Sodium 136 (135-145) mmol/L Potassium 3.9 (3.5-5.0) mmol/L Chloride 103 (101-111) mmol/L Carbon Dioxide 23 (21-32) mmol/L Anion Gap 10.0 (6-13) BUN 14 (6-20) mg/dL Creatinine 1.0 (0.6-1.2) mg/dL Estimated GFR (MDRD) 74 L (>89) Glucose 204 H (70-100) mg/dL POC Whole Bld Glucose 167 H (70 - 100) mg/dL Lactic Acid (0.5-2.2) mmol/L Calcium 8.5 (8.5-10.3) mg/dL Phosphorus 2.5 (2.5-4.6) mg/dL Magnesium 2.2 (1.7-2.8) mg/dL Total Bilirubin 0.7 (0.2-1.0) mg/dL AST 26 (10-42) IU/L ALT 23 (10-60) IU/L Alkaline Phosphatase 62 (42-121) IU/L B-Natriuretic Peptide (5-100) pg/mL Total Protein 7.3 (6.7-8.2) g/dL Albumin 3.0 L (3.2-5.5) g/dL Globulin 4.3 H (2.1-4.2) g/dL Albumin/Globulin Ratio 0.7 L (1.0-2.2) 03/07/18 03/07/18 03/07/18 Range/Units 20:18 16:52 12:46 WBC (4.8-10.8) x10^3/uL RBC (4.70-6.10) 10^6/uL Hgb (14.0-18.0) g/dL Hct (42.0-52.0) % MCV (80.0-94.0) fL MCH (27.0-31.0) pg MCHC (32.0-36.0) g/dL RDW (12.0-15.0) % Plt Count (130-450) 10^3/uL MPV (7.4-11.4) fL Neut # (Auto) (1.5-6.6) 10^3/uL Lymph # (Auto) (1.5-3.5) 10^3/uL Quay # (Auto) (0.0-1.0) 10^3/uL Eos # (Auto) (0.0-0.7) 10^3/uL Baso # (Auto) (0.0-0.1) 10^3/uL Absolute Nucleated RBC x10^3/uL Nucleated RBC % /100WBC Sodium (135-145) mmol/L Potassium (3.5-5.0) mmol/L Chloride (101-111) mmol/L Carbon Dioxide (21-32) mmol/L Anion Gap (6-13) BUN (6-20) mg/dL Creatinine (0.6-1.2) mg/dL Estimated GFR (MDRD) (>89) Glucose (70-100) mg/dL POC Whole Bld Glucose 170 H 106 H 93 (70 - 100) mg/dL Lactic Acid (0.5-2.2) mmol/L Calcium (8.5-10.3) mg/dL Phosphorus (2.5-4.6) mg/dL Magnesium (1.7-2.8) mg/dL Total Bilirubin (0.2-1.0) mg/dL AST (10-42) IU/L ALT (10-60) IU/L Alkaline Phosphatase (42-121) IU/L B-Natriuretic Peptide (5-100) pg/mL Total Protein (6.7-8.2) g/dL Albumin (3.2-5.5) g/dL Globulin (2.1-4.2) g/dL Albumin/Globulin Ratio (1.0-2.2) - Other Results/Comments Other Results/Comments: Patient lying in bed left lower extremity remains neurovascular unchanged distally. He has decreased erythema in the medial thigh and lateral thigh. Trace amount of erythema immediately around the incision significantly decreased from previous. No significant drainage appreciated on the dressing. Edges of the wound intact. Wound examined at the edges but otherwise primary dressing left in place for compression. Calves soft nontender bilaterally. Sepsis Event Note (H) - Evaluation Current Stage of Sepsis: Ruled out - Sepsis Criteria Sepsis Criteria: Metabolic: lactate > 2 mmol/L (related to chronic Metformin use.) Assessment/Plan - Problem List (1) Prepatellar bursitis of left knee Impression: Patient is much improved postoperative day #1 status post left prepatellar bursa irrigation and debridement. He has overall decreased symptoms he has improved erythema. We would await some culture information and likely transition him to oral antibiotics. We will leave the compressive dressing on for now. He is encouraged to do activities as tolerated with ambulation assistance and assistive device as necessary. Continue analgesic medications and hospitalist medical management as necessary. I would expect likely discharge tomorrow pending the above. Discussed the above with the patient and the patient's Kelly Quintero they verbalized understanding and agreement with the above plan after having had her questions answered.
[2018-03-08] MEDS: INSULIN GLARGINE 300 UNIT/3 ML PEN SUBQ SCH (12:27)
[2018-03-08] MEDS: ACETAMINOPHEN 325 MG TABLET PO PRN (17:00)
--- NOTE | 2018-03-08 19:31 | OPERATIVE REPORT ---
DATE OF SERVICE: 03/07/2018 Physician: Donald Pantoja MD SURGEON: Donald Pantoja MD CHIEF COMPLIANCE OFFICER: None. ANESTHESIA PROVIDER: Carlito Arce CRNA ANESTHESIA TYPE: General LMA. TOURNIQUET TIME: Zero. FLUIDS: 600 mL lactated Ringer's. ESTIMATED BLOOD LOSS: 150 mL COMPRESSION DEVICE: Contralateral right calf SCD boot. SPECIMEN: Biopsy/culture sent, multiple anaerobic and aerobic cultures sent from prepatellar bursal region. INTRAOPERATIVE COMPLICATIONS: None noted. PREOPERATIVE DIAGNOSIS: Left prepatellar septic bursitis. POSTOPERATIVE DIAGNOSIS: Left prepatellar septic bursitis. PROCEDURE: Left knee prepatellar bursa irrigation and debridement. HISTORY OF PRESENT ILLNESS: Patient is a 72-year-old gentleman who has had a number of days of left lower extremity cellulitis. He reportedly had some improvement on antibiotics but continued to have prepatellar swelling and pain. He was indicated for operative treatment, given the failure to respond to antibiotics and presumed septic prepatellar bursitis. The patient previously had risks, benefits, and alternatives were reviewed with him. These included, but were not limited to worsening of his condition, failure to "cure" patient's problem, need for additional procedures, possible wound VAC rather than full closure and subsequent surgery, bleeding, blood loss, blood clot embolus, tourniquet complications, positioning complications, anesthetic complications including, but not limited to major cardiovascular and neurovascular complications, even . We talked about the potential for other risks not addressed here and the potential for more systemic concerns and other joint involvement. He verbalized understanding of the above and verbalized wished to proceed with operative treatment. Informed consent was given. PROCEDURE: On 03/07/2018 patient identified in his hospital room. He identifies his left knee as the operative site; this was signed by the operating surgeon. Patient had already received previous planned antibiotics, is brought to the operating room and placed supine. General anesthesia is administered. Head, neck, and extremities are placed in anatomic comfortable and safe position to avoid peripheral nerve stretch compression. At this point, patient's left lower extremity has a well-padded tourniquet placed high on the left side, taking care to avoid damage to the genitalia; however, the tourniquet is not used during the case. At this point, patient's left lower extremity is prescrubbed with Hibiclens solution and then prepped and draped in the usual sterile fashion. At this point, a surgical pause identifies the left knee, and then an incision is made directly over the prepatellar region in the midline through skin and subcutaneous tissue down to the bursa, at which point purulence is under pressure and evacuated from the prepatellar bursal region. This is also sent for culture. At this point, the incision is extended proximally and distally so that sharp debridement could be carried out all the way to the healthy tissue plane. At this point, the fat is noted to be somewhat necrotic in this area and then sharply debrided, taking care to avoid any deep penetration to the knee joint, as well as taking care to avoid any injury to quadriceps, quadriceps tendon, patella, and patellar tendon. At this point, once the area was sharply debrided, it was copiously irrigated with pulsatile lavage, greater than 6 liters used to total. At this point, repeat irrigation, curetting and rongeur are used to get to all corners of the wound to a freshly bleeding plane. Once this was repeated multiple times, it is noted that the edges of the tissue are noted to be healthy and apparently uninvolved. At this point, copious irrigation is again commenced. There is good hemostasis. Then the skin is closed in a layered fashion using 3 minimal PDS sutures deeply and then interrupted large nylon sutures for the skin. The skin is washed, dried, large Xeroform dressing applied. Dry sterile dressing is applied. Multiple ABD pads for compression and then Sof-Rol and Paul wrap are applied for a compressive dressing. Patient tolerated the procedure well. Instrument and sponge counts are correct. Patient is transferred to recovery room in stable condition. Attempts are made to contact patient's via telephone, unanswered. Patient will be on perioperative antibiotics and DVT prophylaxis as necessary, can maintain the compressive dressing and be up and out of bed with assistance and assist device as necessary. Of note, aside from the above operative findings with regard to significant purulence and fatty necrosis in the prepatellar bursal region and surrounding area, there was noted to be significant decrease in erythema even during the course of the case as initially it extends up the medial thigh and lateral thigh, though this area is improved prior to dressing the wound. TD: 03/08/2018 12:19 MENDOZA
[2018-03-09 00:16] LABS: VANCOMYCIN,TROUGH 12.5 ug/mL (10.0-20.0)
[2018-03-09] MEDS: PIPERACILLIN/TAZOBACTAM 3.375 GM in SODIUM CHLORIDE 0.9% MINIBAG 100 ML IV SCH ×3 (00:22→10:43)
[2018-03-09] MEDS: SODIUM CHLORIDE FLUSH 0.9% 10 ML SYRINGE IVP SCH ×2 (00:23→01:22)
[2018-03-09] MEDS: ACETAMINOPHEN 325 MG TABLET PO PRN (00:23)
[2018-03-09] MEDS ORDERED: VANCOMYCIN INJ 1 GM in SODIUM CHLORIDE 0.9% 250 ML IV SCH (01:00)
[2018-03-09] MEDS: SODIUM CHLORIDE FLUSH 0.9% 10 ML SYRINGE IVP PRN ×3 (01:22→04:57)
[2018-03-09 06:18] LABS: BASOPHILS # (AUTO) 0.1 10^3/uL (0.0-0.1); EOSINOPHILS # (AUTO) 0.2 10^3/uL (0.0-0.7); HGB - HEMOGLOBIN 11.2 g/dL (14.0-18.0); LYMPHOCYTES # (AUTO) 1.6 10^3/uL (1.5-3.5); LYMPHOCYTES % (AUTO) 22.6 %; MEAN CORPUSCULAR HGB CONC 33.2 g/dL (32.0-36.0); MEAN CORPUSCULAR VOLUME 90.1 fL (80.0-94.0); MEAN PLATELET VOLUME 7.2 fL (7.4-11.4); MONOCYTES # (AUTO) 0.7 10^3/uL (0.0-1.0); MONOCYTES % (AUTO) 10.1 %; NEUTROPHILS # (AUTO) 4.5 10^3/uL (1.5-6.6); NEUTROPHILS % (AUTO) 63.3 %; PLT - PLATELET COUNT 281 10^3/uL (130-450); RED BLOOD COUNT 3.73 10^6/uL (4.70-6.10); RED CELL DISTRIBUTION WIDTH 14.8 % (12.0-15.0); WHITE BLOOD COUNT 7.2 x10^3/uL (4.8-10.8)
[2018-03-09 06:35] LABS: ALBUMIN 2.7 g/dL (3.2-5.5); ALBUMIN/GLOBULIN RATIO 0.8 (1.0-2.2); BILIRUBIN,TOTAL 0.5 mg/dL (0.2-1.0); CALCIUM 8.1 mg/dL (8.5-10.3); CREATININE 0.9 mg/dL (0.6-1.2); CRP - C-REACTIVE PROTEIN 10.7 mg/dL (0-1.0); TOTAL PROTEIN 6.2 g/dL (6.7-8.2)
[2018-03-09] MEDS ORDERED: DIPHENOX/ATROPINE 2.5/0.025 MG TABLET PO PRN (08:00)
--- NOTE | 2018-03-09 08:04 | Discharge Plan ---
Discharge Plan Disposition: Home, Self Care Condition: Good Prescriptions: HYDROcod/ACETAM 5/325 [[place] 5/325] 1 tab PO Q4HR PRN #25 tablet PRN Reason: Pain Clindamycin HCl [Clindamycin 300MG CAP] 300 mg PO TID #30 capsule Diphenoxylate/Atropine [Lomotil] 1 tab PO QID PRN #25 tablet PRN Reason: Diarrhea Losartan Potassium 25 mg PO DAILY #30 tablet Metoprolol Succinate [Toprol Xl] 12.5 mg PO BIDWM #30 tablet Saccharomyces Boulardii [Florastor] 250 mg PO BID #60 capsule Diet: Diabetic Activity Restrictions: Activity as Tolerated Shower Restrictions: No Weight Bearing: Full Weight Additional Instructions or Follow Up instructions: You were admitted for left leg cellulitis and given IV antibiotics. The site of entry was most likely the scabbed area on your de la fuente. A complication occurred in which your knee became more red, with swelling and pain, so an orthopedic consult was made with Dr. Pantoja. You underwent a left knee incision and drainage without complications. New wound cultures were obtained, but are still pending at the time of discharge. You will continue these antibiotics at home for another 10 days. Please use pain as your guide for how much activity you should do. I have given you a short course of pain medications to help you out. Your diabetes was found to be in very good control. A hemoglobin A1C was 5.6%, showing very good control. Continue the Metformin. The diarrhea should subside, but continue the probiotic for about one month, and I have given you a Lomitil prescription to control this. Please see your PCP within one week. No Smoking: If you smoke, Please STOP! Call for help. Follow-up with: Provider,Other [Primary Care Provider] -
[2018-03-09] MEDS ORDERED: CLINDAMYCIN 150 MG CAPSULE PO SCH (08:14)
--- NOTE | 2018-03-09 08:14 | DISCHARGE SUMMARY ---
"Discharge Summary Admit Date: 03/04/18 Discharge Date: 03/09/18 Discharging Provider: JOSEFINA Uriostegui Primary Care Provider: Ariela Mcmanus Code Status: Do Not Attempt Resuscitation Condition at Discharge: Good Discharge Disposition: 01 Home, Self Care - DIAGNOSES Admission Diagnoses: Cellulitis of leg without foot, left (L03.116) Diabetes mellitus type 2 in obese (E11.69) Obesity with body mass index of 30.0-39.9 (E66.9) Peripheral neuropathy (G62.9) Discharge Diagnoses with Status of Each Condition: Cellulitis of leg without foot, left (L03.116) improved, oral antibiotics to continue. Prepatellar bursitis of left knee (M70.42) Post op I & D of left knee with Dr. Pantoja-Orthopedic surgery. Pain of left knee and lower leg (M25.562) improved. Anorexia symptom (R63.0) resolved. Peripheral neuropathy (G62.9) chronic, stable. Diabetes mellitus type 2 in obese (E11.69) chronic, stable. Obesity with body mass index of 30.0-39.9 (E66.9) chronic, stable. Hypertension (I10) chronic, stable. Moderate to severe pulmonary hypertension (I27.20) chronic, stable. Should undergo a sleep study per PCP. - HPI History of Present Illness: Jordan Briscoe (Jim) is an obese 72-year old male with a past medical history of peripheral neuropathy, controlled DM type 2-on Metformin, obesity, logging accident in 1969 to [facility], and hardware removal in 1971 after infection. The patient admits to bumping his left de la fuente about a week ago while [place] the pier and this resulted in a dime sized scab. 2 days ago the patient described a series of full body rigors, increased fatigue, loss of appetite, chills, sweats, increased left knee swelling and pain while ambulating. Today he decided to come to the ED since his left knee was not only swollen, but also warm and red. Once arriving in the ED labs were unremarkable with the exception of a WBC count of 16.1 and an elevated ESR of 24. The patient was afebrile while in the ED, but after arriving to the nursing floor was found to have a temp max of 37.8, blood pressure of 132/85, and was comfortable on room air. On exam his left knee and de la fuente were swollen, were tender, and this erythema had not exceeded the previous markings, but seemed to originate at the dime sized scab on his anterior de la fuente and extended just past his knee into his thigh about 5 inches. He was given a one time dose of Rocephin. He denied chest pain, shortness of breath, nausea, vomiting, headaches, hallucinations, orthopnea, a new rash, loss of consciousness, falls, recent illness, or diarrhea. He will be admitted to inpatient for further work up and treatment of this left leg cellulitis. - CONSULTS | PROCEDURES Consultations: Orthopedic surgery-Dr. Pantoja Procedures: Left knee I & D. - HOSPITAL COURSE Hospital Course: The patient was admitted for left leg cellulitus with the most likely port of entry being the left anterior de la fuente wound that appeared scabbed over. After at least 48 hours of IV treatment the patient remained with left knee swelling, pain and increased redness so an ortho surgery consult was made. Imaging confirmed a pre patellar collection that appeared infected. After the procedure, the patient had a full resolution of pain of his left knee and his infection continued to improve. He was medically stable and started on oral clindamycin that is to continue for the next 10 days unless we call him after the cultures are back with a better choice. He is to follow up with Dr. Pantoja in the out patient clinic and was encouraged to see his PCP regarding his blood pressure control with a few minor changes that had been made. He was given a short course of lomotil for some loose stools that just developed and hydrocodone for pain. He was told to resume his Metformin since his appetite was back to normal. - ALLERGIES Allergies/Adverse Reactions: Allergies Allergy/AdvReac Type Severity Reaction Status Date / Time No Known Drug Allergies Allergy Verified 03/04/18 09:40 - MEDICATIONS Home Medications: Ambulatory Orders Medication Instructions Recorded Confirmed metFORMIN [Glucophage] 1,000 mg PO BIDWM 03/04/18 03/04/18 Clindamycin HCl [Clindamycin 300MG 300 mg PO TID #30 capsule 03/09/18 CAP] Diphenoxylate/Atropine [Lomotil] 1 tab PO QID PRN #25 tablet 03/09/18 HYDROcod/ACETAM 5/325 [[place] 5/325] 1 tab PO Q4HR PRN #25 tablet 03/09/18 Losartan Potassium 25 mg PO DAILY #30 tablet 03/09/18 Metoprolol Succinate [Toprol Xl] 12.5 mg PO BIDWM #30 tablet 03/09/18 Saccharomyces Boulardii [Florastor] 250 mg PO BID #60 capsule 03/09/18 - PHYSICAL EXAM AT DISCHARGE General Appearance: positive: No acute distress, Alert Eyes Bilateral: positive: Normal inspection, PERRL ENT: positive: ENT inspection nml, Pharynx nml, No signs of dehydration Neck: positive: Thyroid nml, No JVD, Trachea midline Respiratory: positive: Chest non-tender, No respiratory distress, Breath sounds nml Cardiovascular: positive: Regular rate & rhythm, No gallop, Systolic murmur Peripheral Pulses: positive: 2+ Abdomen: positive: Non-tender, Nml bowel sounds, Other (rounded, soft) Back: positive: Nml inspection Skin: positive: Color nml, No rash, Warm, Dry Extremities: positive: Non-tender, Full ROM, No pedal edema, Joint swelling (left knee swelling ) Neurologic/Psychiatric: positive: Oriented x3, CN's nml (2-12), Motor nml, Sensation nml, Mood/affect nml Reflexes: Bicep (R): 3+, Bicep (L): 3+, Ankle (R): 3+, Ankle (L): 3+ - LABS Result Diagrams: 03/09/18 05:52 03/09/18 05:52 - DIAGNOSTIC IMAGING Diagnostic Imaging Results: Final report reviewed Diagnostic Imaging Results Comments: EXAM: LEFT KNEE MRI WITHOUT AND WITH CONTRAST EXAM DATE: 03/07/2018 12:36 PM. IMPRESSION: 1. 1.4 x 6.7 x 13 cm peripherally enhancing fluid collection at the anterior knee with surrounding subcutaneous edema and enhancement, favoring cellulitis with pre patellar bursitis, possibly infectious. Differential considerations could also include gout. Correlate with clinical history and consider fluid sampling. 2. Tear of the medial meniscus at the posterior horn- body junction. 3. Intact cruciate and collateral ligaments. Intact lateral meniscus. 4. 1 x 1.5 cm full-thickness cartilage defect at the mesial aspect of the weight bearing lateral femoral condyle, without subchondral edema. 5. Lobulated popliteal cyst projects from the central aspect of the posterior joint capsule. - SEPSIS Current Stage of Sepsis: Ruled out - FOLLOW UP Follow Up: Disposition: Home Prescriptions: HYDROcod/ACETAM 5/325 [[place] 5/325] 1 tab PO Q4HR PRN #25 tablet PRN Reason: Pain Clindamycin HCl [Clindamycin 300MG CAP] 300 mg PO TID #30 capsule Diphenoxylate/Atropine [Lomotil] 1 tab PO QID PRN #25 tablet PRN Reason: Diarrhea Losartan Potassium 25 mg PO DAILY #30 tablet Metoprolol Succinate [Toprol Xl] 12.5 mg PO BIDWM #30 tablet Saccharomyces Boulardii [Florastor] 250 mg PO BID #60 capsule Diet: Diabetic Activity Restrictions: Activity as Tolerated Weight Bearing: Full Weight Additional Instructions or Follow Up instructions: You were admitted for left leg cellulitis and given IV antibiotics. The site of entry was most likely the scabbed area on your de la fuente. A complication occurred in which your knee became more red, with swelling and pain, so an orthopedic consult was made with Dr. Pantoja. You underwent a left knee incision and drainage without complications. New wound cultures were obtained, but are still pending at the time of discharge. You will continue these antibiotics at home for another 10 days. Please use pain as your guide for how much activity you should do. I have given you a short course of pain medications to help you out. Your diabetes was found to be in very good control. A hemoglobin A1C was 5.6%, showing very good control. Continue the Metformin. The diarrhea should subside, but continue the probiotic for about one month, and I have given you a Lomitil prescription to control this. Please see your PCP within one week. - TIME SPENT Time Spent in Discharge (Minutes): 55"
[2018-03-09] MEDS ORDERED: POTASSIUM CHLORIDE 20 MEQ TABLET PO SCH (08:15)
[2018-03-09] MEDS: ASPIRIN 325 MG TABLET PO SCH (08:17)
[2018-03-09] MEDS: LOSARTAN 50 MG TABLET PO SCH (08:17)
[2018-03-09] MEDS: METOPROLOL SUCCINATE 25 MG TABLET PO SCH (08:17)
[2018-03-09] MEDS: SACCHAROMYCES BOULARDII 250 MG CAPSULE PO SCH (08:17)
[2018-03-09] MEDS: DOCUSATE SODIUM 250 MG CAPSULE PO SCH (08:17)
[2018-03-09] MEDS: SENNA 8.6 MG TABLET PO SCH (08:18)
[2018-03-09] MEDS: POLYETHYLENE GLYCOL 3350 17 GM PACKET PO SCH (08:18)
--- NOTE | 2018-03-09 08:45 | PROVIDER PROGRESS NOTE ---
Subjective - Prog Note Date Prog Note Date: 03/09/18 - Subjective Pt reports feeling: Improved (patient notes he is feeling better all the time. does note some loose stools. says knee feels much more comfortable) Objective - Vital Signs/Intake & Output Vital Signs: Vital Signs x48h Temp Pulse Resp BP Pulse Ox 03/09/18 07:00 36.9 C 70 16 122/82 H 99 Intake & Output: Intake & Output 03/06/18 03/07/18 03/08/18 03/09/18 23:59 23:59 23:59 23:59 Intake Total 2300 2936.667 2600.000 700 Output Total 1250 2050 Balance 1050 497.297 5337.000 700 - Lab Results Fish Bones: 03/09/18 05:52 03/09/18 05:52 Other Labs: Lab Results x24hrs 03/09/18 03/09/18 03/09/18 Range/Units 07:30 05:52 05:52 WBC (4.8-10.8) x10^3/uL RBC (4.70-6.10) 10^6/uL Hgb (14.0-18.0) g/dL Hct (42.0-52.0) % MCV (80.0-94.0) fL MCH (27.0-31.0) pg MCHC (32.0-36.0) g/dL RDW (12.0-15.0) % Plt Count (130-450) 10^3/uL MPV (7.4-11.4) fL Neut # (Auto) (1.5-6.6) 10^3/uL Lymph # (Auto) (1.5-3.5) 10^3/uL Bowman # (Auto) (0.0-1.0) 10^3/uL Eos # (Auto) (0.0-0.7) 10^3/uL Baso # (Auto) (0.0-0.1) 10^3/uL Absolute Nucleated RBC x10^3/uL Nucleated RBC % /100WBC ESR 94 H (0-20) mm/Hr Sodium 139 (135-145) mmol/L Potassium 3.6 (3.5-5.0) mmol/L Chloride 107 (101-111) mmol/L Carbon Dioxide 23 (21-32) mmol/L Anion Gap 9.0 (6-13) BUN 14 (6-20) mg/dL Creatinine 0.9 (0.6-1.2) mg/dL Estimated GFR (MDRD) 83 L (>89) Glucose 112 H (70-100) mg/dL POC Whole Bld Glucose 96 (70 - 100) mg/dL Lactic Acid (0.5-2.2) mmol/L Calcium 8.1 L (8.5-10.3) mg/dL Phosphorus (2.5-4.6) mg/dL Magnesium (1.7-2.8) mg/dL Total Bilirubin 0.5 (0.2-1.0) mg/dL AST 33 (10-42) IU/L ALT 31 (10-60) IU/L Alkaline Phosphatase 54 (42-121) IU/L C-Reactive Protein 10.7 H (0-1.0) mg/dL B-Natriuretic Peptide (5-100) pg/mL Total Protein 6.2 L (6.7-8.2) g/dL Albumin 2.7 L (3.2-5.5) g/dL Globulin 3.5 (2.1-4.2) g/dL Albumin/Globulin Ratio 0.8 L (1.0-2.2) Last Dose Date Last Dose Time Vancomycin Trough (10.0-20.0) ug/mL 03/09/18 03/08/18 03/08/18 Range/Units 05:52 21:30 20:10 WBC 7.2 (4.8-10.8) x10^3/uL RBC 3.73 L (4.70-6.10) 10^6/uL Hgb 11.2 L (14.0-18.0) g/dL Hct 33.6 L (42.0-52.0) % MCV 90.1 (80.0-94.0) fL MCH 30.0 (27.0-31.0) pg MCHC 33.2 (32.0-36.0) g/dL RDW 14.8 (12.0-15.0) % Plt Count 281 (130-450) 10^3/uL MPV 7.2 L (7.4-11.4) fL Neut # (Auto) 4.5 (1.5-6.6) 10^3/uL Lymph # (Auto) 1.6 (1.5-3.5) 10^3/uL Bowman # (Auto) 0.7 (0.0-1.0) 10^3/uL Eos # (Auto) 0.2 (0.0-0.7) 10^3/uL Baso # (Auto) 0.1 (0.0-0.1) 10^3/uL Absolute Nucleated RBC 0.01 x10^3/uL Nucleated RBC % 0.1 /100WBC ESR (0-20) mm/Hr Sodium (135-145) mmol/L Potassium (3.5-5.0) mmol/L Chloride (101-111) mmol/L Carbon Dioxide (21-32) mmol/L Anion Gap (6-13) BUN (6-20) mg/dL Creatinine (0.6-1.2) mg/dL Estimated GFR (MDRD) (>89) Glucose (70-100) mg/dL POC Whole Bld Glucose 136 H (70 - 100) mg/dL Lactic Acid (0.5-2.2) mmol/L Calcium (8.5-10.3) mg/dL Phosphorus (2.5-4.6) mg/dL Magnesium (1.7-2.8) mg/dL Total Bilirubin (0.2-1.0) mg/dL AST (10-42) IU/L ALT (10-60) IU/L Alkaline Phosphatase (42-121) IU/L C-Reactive Protein (0-1.0) mg/dL B-Natriuretic Peptide (5-100) pg/mL Total Protein (6.7-8.2) g/dL Albumin (3.2-5.5) g/dL Globulin (2.1-4.2) g/dL Albumin/Globulin Ratio (1.0-2.2) Last Dose Date UNK Last Dose Time UNK Vancomycin Trough 12.5 (10.0-20.0) ug/mL 03/08/18 03/08/18 03/08/18 Range/Units 16:11 10:58 09:20 WBC (4.8-10.8) x10^3/uL RBC (4.70-6.10) 10^6/uL Hgb (14.0-18.0) g/dL Hct (42.0-52.0) % MCV (80.0-94.0) fL MCH (27.0-31.0) pg MCHC (32.0-36.0) g/dL RDW (12.0-15.0) % Plt Count (130-450) 10^3/uL MPV (7.4-11.4) fL Neut # (Auto) (1.5-6.6) 10^3/uL Lymph # (Auto) (1.5-3.5) 10^3/uL Bowman # (Auto) (0.0-1.0) 10^3/uL Eos # (Auto) (0.0-0.7) 10^3/uL Baso # (Auto) (0.0-0.1) 10^3/uL Absolute Nucleated RBC x10^3/uL Nucleated RBC % /100WBC ESR (0-20) mm/Hr Sodium (135-145) mmol/L Potassium (3.5-5.0) mmol/L Chloride (101-111) mmol/L Carbon Dioxide (21-32) mmol/L Anion Gap (6-13) BUN (6-20) mg/dL Creatinine (0.6-1.2) mg/dL Estimated GFR (MDRD) (>89) Glucose (70-100) mg/dL POC Whole Bld Glucose 112 H 145 H (70 - 100) mg/dL Lactic Acid (0.5-2.2) mmol/L Calcium (8.5-10.3) mg/dL Phosphorus (2.5-4.6) mg/dL Magnesium (1.7-2.8) mg/dL Total Bilirubin (0.2-1.0) mg/dL AST (10-42) IU/L ALT (10-60) IU/L Alkaline Phosphatase (42-121) IU/L C-Reactive Protein (0-1.0) mg/dL B-Natriuretic Peptide 72 (5-100) pg/mL Total Protein (6.7-8.2) g/dL Albumin (3.2-5.5) g/dL Globulin (2.1-4.2) g/dL Albumin/Globulin Ratio (1.0-2.2) Last Dose Date Last Dose Time Vancomycin Trough (10.0-20.0) ug/mL 03/08/18 03/08/18 03/08/18 Range/Units 09:20 09:20 09:20 WBC 10.3 (4.8-10.8) x10^3/uL RBC 4.02 L (4.70-6.10) 10^6/uL Hgb 12.0 L (14.0-18.0) g/dL Hct 35.5 L (42.0-52.0) % MCV 88.4 (80.0-94.0) fL MCH 30.0 (27.0-31.0) pg MCHC 33.9 (32.0-36.0) g/dL RDW 14.4 (12.0-15.0) % Plt Count 291 (130-450) 10^3/uL MPV 7.4 (7.4-11.4) fL Neut # (Auto) 8.7 H (1.5-6.6) 10^3/uL Lymph # (Auto) 0.9 L (1.5-3.5) 10^3/uL Bowman # (Auto) 0.7 (0.0-1.0) 10^3/uL Eos # (Auto) 0.0 (0.0-0.7) 10^3/uL Baso # (Auto) 0.1 (0.0-0.1) 10^3/uL Absolute Nucleated RBC 0.00 x10^3/uL Nucleated RBC % 0.0 /100WBC ESR (0-20) mm/Hr Sodium 136 (135-145) mmol/L Potassium 3.9 (3.5-5.0) mmol/L Chloride 103 (101-111) mmol/L Carbon Dioxide 23 (21-32) mmol/L Anion Gap 10.0 (6-13) BUN 14 (6-20) mg/dL Creatinine 1.0 (0.6-1.2) mg/dL Estimated GFR (MDRD) 74 L (>89) Glucose 204 H (70-100) mg/dL POC Whole Bld Glucose (70 - 100) mg/dL Lactic Acid 1.8 (0.5-2.2) mmol/L Calcium 8.5 (8.5-10.3) mg/dL Phosphorus 2.5 (2.5-4.6) mg/dL Magnesium 2.2 (1.7-2.8) mg/dL Total Bilirubin 0.7 (0.2-1.0) mg/dL AST 26 (10-42) IU/L ALT 23 (10-60) IU/L Alkaline Phosphatase 62 (42-121) IU/L C-Reactive Protein (0-1.0) mg/dL B-Natriuretic Peptide (5-100) pg/mL Total Protein 7.3 (6.7-8.2) g/dL Albumin 3.0 L (3.2-5.5) g/dL Globulin 4.3 H (2.1-4.2) g/dL Albumin/Globulin Ratio 0.7 L (1.0-2.2) Last Dose Date Last Dose Time Vancomycin Trough (10.0-20.0) ug/mL - Other Results/Comments Other Results/Comments: LLE remains nvid. calves s/nt bilteral. left knee incision clean dry intact. no significant reaccumulation of fluid. jaya in place. minimal surrounding erythema near incision. no other sig erythema noted. Sepsis Event Note (H) - Evaluation Current Stage of Sepsis: Ruled out - Sepsis Criteria Sepsis Criteria: Metabolic: lactate > 2 mmol/L (related to chronic Metformin use.) Assessment/Plan - Problem List (1) Prepatellar bursitis of left knee Impression: doing well from ortho perspective pod 2 post left knee pre-patellar bursa i & d cont current med mgt abx per cx cont pressure/compressive dressing on knee- after changing today. gradual activity as tolerated though avoid exertion. may dc from ortho perspective follow-up 3-5 days ortho clinic or sooner prn d/w pt. questions answered. in agreement.
[2018-03-09] MEDS: INSULIN GLARGINE 300 UNIT/3 ML PEN SUBQ SCH (08:54)
[2018-03-09 12:34] VITALS: BP 137/85
== END 2018-03-09 12:50 | disposition home or self-care (01) | DRG 989 ==
LOC: ED 09:25 → MS2 13:29
PROVIDERS: ADMIT Nurse Practitioner; ATTEND Nurse Practitioner
PROC: 0MBP0ZZ Excision of Left Knee Bursa and Ligament, Open Approach (ICD-10-PCS; principal; 2018-03-07 19:00)
DX: L03.116 Cellulitis of left lower limb (principal); I10 Essential (primary) hypertension; E11.9 Type 2 diabetes mellitus without complications; Z79.84 Long term (current) use of oral hypoglycemic drugs; E66.9 Obesity, unspecified; M70.42 Prepatellar bursitis, left knee; I27.20 Pulmonary hypertension, unspecified; R63.0 Anorexia; G62.9 Polyneuropathy, unspecified; H91.90 Unspecified hearing loss, unspecified ear; Z96.643 Presence of artificial hip joint, bilateral; Z68.37 Body mass index [BMI] 37.0-37.9, adult
CPT/HCPCS: 36415; 80053; 80202; 83036; 83605; 83690; 83735; 83880; 84100; 85025; 85651; 86140; 86141; 87040; 87070; 87205; 93005; 93306; 96365; 99283; 99284